=== PATIENT | female | born 1965 | race Caucasian/White ===

== ENCOUNTER 2025-01-30 13:38 | Outpatient (OUT) | payer MEDICARE, MEDICAID, SELFPAY | END 2025-01-30 13:39 | disposition home or self-care (01) | LOC: PST 13:38 | PROVIDERS: Visit Provider Urology | DX: Z01.818 Encounter for other preprocedural examination (principal); Z85.51 Personal history of malignant neoplasm of bladder ==

== ENCOUNTER 2025-02-02 08:07 | Day surgery (SDC) | payer MEDICARE, MEDICAID, SELFPAY ==
[2025-02-02] MEDS: LIDOCAINE 2% JELLY 10 ML UR (08:41)
--- NOTE | 2025-02-02 08:55 | PM.URSON ---
Urology Surgery Operative Note Operative Note Procedure Date: 02/02/25 Time Out Performed: yes Pre-op Diagnosis: History of recurrent TCC of the bladder Post-op Diagnosis: same as pre-op Procedures performed: 1. Cystoscopy. 2. Bladder wash for cytology. Anesthesia: local Primary Surgeon: Jono Blake Complications: None Estimated blood loss (mL): 0 Findings: No evidence of bladder tumors. Mild chronic inflammatory changes. Specimens: Bladder wash for cytology. Drains: None Indications for Procedures: This lady has recurrent superficial TCC of the bladder. She is in a facility due to her inability to care for herself. It has been nearly 1 year since her last cystoscopy. She now presents for cystoscopy and bladder wash for cytology. She has signed an informed consent after risks were explained. Detailed description of Procedure: The patient was kept on the gurcoleman bed and brought into the endoscopy suite. She was in the supine position. Timeout was done by all parties in the room. She was then placed in the frog-leg position. Her genitalia were sterilely prepped and draped in the usual fashion. 2% lidocaine gel was passed per urethra. I then passed a flexible cystoscope per urethra and into the bladder. The urethra was unremarkable. Panendoscopy in the bladder revealed no evidence of any tumors or stones. There was some mild chronic inflammatory changes on the base of the bladder. There was some inflammatory debris on the base of the bladder. On retroflex no new findings were noted. A vigorous wash was done and sent for cytology. The scope was then removed. She was then discharged back to her facility.
--- NOTE | 2025-02-02 09:15 | PC.NURSE ---
attempted 3 times to update facility on post op procedure no answer. Patient's facility hook up driver came to brain picker patient in the lift van.
== END 2025-02-02 09:11 | disposition home or self-care (01) ==
PROVIDERS: Visit Provider Urology
PROC: (CPT 51700; principal; 2025-02-02 08:30)
DX: Z85.51 Personal history of malignant neoplasm of bladder (principal); D64.9 Anemia, unspecified; I25.10 Atherosclerotic heart disease of native coronary artery without angina pectoris; K21.9 Gastro-esophageal reflux disease without esophagitis; J44.9 Chronic obstructive pulmonary disease, unspecified; E11.9 Type 2 diabetes mellitus without complications; I10 Essential (primary) hypertension; Z86.718 Personal history of other venous thrombosis and embolism; Z90.49 Acquired absence of other specified parts of digestive tract; Z89.429 Acquired absence of other toe(s), unspecified side; Z79.4 Long term (current) use of insulin; Z79.84 Long term (current) use of oral hypoglycemic drugs; F17.200 Nicotine dependence, unspecified, uncomplicated
CPT/HCPCS: 51700; 52000; 99999

== ENCOUNTER 2025-08-19 12:05 | Outpatient (OUT) | payer MEDICARE, SELFPAY ==
--- OUTSIDE RECORDS SUMMARY | 2025-08-19 12:08 | XMS_ITS | Clinical Summary ---
Author Organization [facility] Address [address] [facility] [place] [address] Care Team Providers Care Tie Man Name Role Phone Unavailable Primary Care Provider Unavailabl e Source Comments The following information is NOT included in Care Everywhere downloads:Psychiatric notes, ECG results, Cardiac Rehab notes, Pulmonary Function notes, data from SmartForms (includes but not limited toPregnancy data,audiograms, eye exams, pre-surgical evaluation notes, well-child exam data).[facility] Allergies Active AllergyReactionsCriticalityNoted DuenCdgnpgbaOnryppqhbha24/20/2024 Medications MedicationSigDispense QuantityRefillsLast FilledStart DateEnd DateStatus levothyroxine (SYNTHROID) 100 MCG tablet Take 2 Tablets by mouth daily.04/30/2024ctive sodium chloride 1 GM tablet Take 1 Tablet by mouth 3 times a day.04/30/2024ctive polyethylene glycol (MIRALAX) packet Dissolve 1 Packet (17 g total) in 8 ounces of liquid and drink daily.05/01/2024 Active insulin lispro (HumaLOG) 100 UNIT/ML injection Inject 2-9 Units under the skin 3 times daily (before meals).04/30/2024ctive acetaminophen (TYLENOL) 500 MG tablet Take 1 Tablet by mouth every 6 (six) hours.04/30/2024ctive docusate sodium (COLACE) 100 MG capsule Take 1 Capsule by mouth 2 times daily. 10 Capsule 07/14/2024 11:41 AM EDT1ctive lidocaine (LIDODERM) 4 % PTCH patch Place 1 Patch on the skin every 24 hours. 10 Patch 07/14/2024 11:41 AM EDT1ctive Active Problems ProblemNoted DateDiagnosed SeqwJyeidrnt19/20/9788Qqamqhyxnril89/03/2024MRSA cjjjjyyjjs02/28/2024UTI due to Klebsiella genjdwx3804/20/2024neumonia due to methicillin resistant Staphylococcus aureus (MRSA), unspecified laterality, unspecified part of lung04/20/2024oronary artery disease involving tyonek heart, unspecified vessel or lesion type, unspecified whether angina present 04/20/2024Type 2 diabetes mellitus without complication, without long-term current use of zcmwgfr1404/20/2024cute respiratory failure with hypoxia and ujtggxfismw94/19/2024Osteomyelitis of lumbar ulcsatgf57/17/2024 Immunizations ImmunizationAdministration DatesNext DuePneumococcal conjugate 13 valent (PCV13) (AWR=622)06/30/2021neumococcal conjugate 20 valent (PCV20), polysaccharide YME474 conjugate, adjuvant, PF (TDS=993)03/29/2023Zoster Recombinant (RZV,Shingles) (XJX=298)03/29/2023 Social History Tobacco UseTypesPacks/DayYears UsedDateSmoking Tobacco: Never Assessed Humiliation, Afraid, Rape, and Kick questionnaireAnswerDate RecordedWithin the last year, have you been afraid of your partner or ex-partner?No07/14/2024Within the last year, have you been humiliated or emotionally abused in other ways by your partner or ex-partner?No07/14/2024Within the last year, have you been kicked, hit, slapped, or otherwise physically hurt by your partner or ex-partner?No07/14/2024Within the last year, have you been raped or forced to have any kind of sexual activity by your partner or ex-partner?No07/14/2024 Hunger Vital SignAnswerDate RecordedWithin the past 12 months, you worried that your food would run out before you got the money to buymore.Never true07/14/2024 Within the past 12 months, the food you bought just didn't last and you didn't have money to get more.Never true07/14/2024RAPARE - TransportationAnswerDate RecordedIn the past 12 months, has lack of transportation kept you from medical appointments or from getting medications?Yes07/14/2024In the past 12 months, has lack of transportation kept you from meetings, work, or from getting things needed for daily living?Yes07/14/2024Housing Stability Vital SignAnswerDate RecordedIn the last 12 months, was there a time when you were not able to pay the mortgage or rent on time?No07/14/2024Number of Times Moved in the Last Year Not on file07/14/2024t any time in the past 12 months, were you homeless or living in a skilled nursing (including now)?No07/14/2024CommentsUnknownSex and Gender InformationValueDate RecordedSex Assigned at BirthNot on fileLegal Sex Mxfofm1611/23/2020 12:07 PM ESTGender IdentityNot on fileSexual OrientationNot on file Last Filed Vital Signs Vital SignReadingTime TakenCommentsBlood Iabnulcs043/7007/14/2024 10:00 AM EDT Xouyw634107/14/2024 10:00 AM TENJzdcyolasva05 ??C (98.6 ??F)07/14/2024 10:00 AM EDTRespiratory Ulhv5370 10:00 AM EDTOxygen Ydlsizqhpt19%07/14/2024 10:00 AM EDTInhaled Oxygen Concentration--Hbiuzu147.7 kg (266 lb)07/13/2024 7:13 PM HLPBgwkgf202.6 cm (5' 4 )04/19/2024 9:00 PM EDTBody Mass Index45.66004/19/2024 9:00 PM EDT Plan of Treatment Health MaintenanceDue DateLast DoneCommentsFoot Exam1963Eye Exam1963 Urine Protein (microalbumin)1963Hepatitis C Puczdwty40/09/1982Tdap Booster 1981Hepatitis A (HAV) Vaccine (optional start 19+ years)1982Pap Smear1984Cologuard (Stool DNA)2008FIT2008RSV vaccine (adult) (1 - Risk 50-74 years 1-dose series)2013nnual Wellness Visit (G0438) 12/23/20212569Yshspyvuoad52//hingles (RZV) Vaccine (2 of 2) /02/2023Hepatitis B (HBV) Vaccine (optional start 60+ years) 2023Hemoglobin A1C//850672/, 07/05/2022Lipid Rzvhzun4610/18/2024 10/18/2023OVID-19 Vaccine (3 - season)/06/2021, 07/12/2021 Influenza Vaccine (#1)2025asic Metabolic Panel/, 05/12/2024, 05/01/2024, Additional history existsCRC Tzuqzgrwp07/30/2029 Iaeylxoatqx31Pneumococcal Vaccine(s) (50+ yrs)Completed 03/29/2023, 06/30/2021HIV NrzsZopecxcny14/20/2024 Medical Devices ImplantedTypeAreaManufacturerDevice IdentifierShelf Expiration DateModel / Serial / LotCap Lck Creo Nxt Lck Ns Lf Ea1 1200.0000 - [id number] Implanted:Qty: 12 on 04/17/2024 by Jhon Fried MD at INPATIENT DEPARTMENTSSpinal ImplantsN/A: Spine Multi CjlauJufpqi6749.0000 / / Scr Bn 6.5mm 45mm Creo Nxt Ea1 7200.1645 - [id number] Implanted:Qty: 10 on 04/17/2024 by Jhon Fried MD at INPATIENT DEPARTMENTSSpinal ImplantsN/A: Spine Multi QhwruQmsisa0170.1645 / / Plate 20mm 0deg Lower Endplat Ea1 151.451 - [id number] Implanted:Qty: 1 on 04/17/2024 by Jhon Fried MD at INPATIENT DEPARTMENTSSpinal ImplantsN/A: Spine Multi AbxsvTqkgip777.451 / / Pty Grft Ossifuse Has Fb Bn 10 Ea1 8263.0010s - [id number] Implanted:Qty: 3 on 04/17/2024 by Jhon Fried MD at INPATIENT DEPARTMENTSN/A: Spine Multi IqjueDfkuvd9942.0010S / / SUPPLYRod Lordotic Ti 5.5 Alloy 200 Ea1 1119.4200 - [id number] Implanted:Qty: 2 on 04/17/2024 by Jhon Fried MD at INPATIENT DEPARTMENTSN/A: Spine Multi QhariYceexd4949.4200 / / Core 20 X 26-34mm Fortify Ea1 151.151 - [id number] Implanted:Qty: 1 on 04/17/2024 by Jhon Fried MD at INPATIENT DEPARTMENTSN/A: Spine Multi TozpsEabkbz222.151 / / 20mm Upper Ea1 151.401 - [id number] Implanted:Qty: 1 on 04/17/2024 by Jhon Fried MD at INPATIENT DEPARTMENTSN/A: Spine Multi KihxnAxfpro713.401 / / Procedures Procedure NamePriorityDate/TimeAssociated DiagnosisCommentsBASIC METABOLIC PANEL Ymehxzj5007/14/2024 1:16 AM EDT HIV1 HIV2 AGAB PEVKMqcwxnh52/20/2024 8:48 AM EDT from Last 3 Months or Most Recently Relevant to Health Maintenance Results * (ABNORMAL) BASIC METABOLIC PANEL (07/14/2024 1:16 AM EDT)ComponentValueRef RangeTest MethodAnalysis TimePerformed AtPathologist PbborqcgmDbfiihq270(H)74 - 109 mg/dL07/14/2024 2:30 AM [facility]EN[facility] YARBGWPGIMHadclc471(L)136 - 145 mmol/L1 2:30 AM EDEN[facility] PATHOLOGY LABORATORYPotassium4.83.5 - 5.0 mmol/L1 2:30 AM EDEN[facility] LABORATORYCarbon Eamoczy0252 - 31 mmol/L1 2:30 AM EDEN[facility] ITQMIEKAEQQrkccfnh04(L)98 - 107 mmol/L1 2:30 AM EDTM PATHOLOGY LABORATORYBlood Urea Gnacdlen033 - 25 mg/dL07/14/2024 2:30 AM [facility] PATH[facility] LABORATORYCreatinine0.51(L)0.60 - 1.20 mg/dL07/14/2024 2:30 AM [facility] PATH[facility] LABORATORYCalcium9.78.6 - 10.3 mg/dL07/14/2024 2:30 AM [facility] PATH[facility] LABORATORYAnion Ojo6915 - 20 07/14/2024 2:30 AM [facility] PATH[facility] LABORATORYEstimated GFR (CKD-EPI)107>=60 mL/min/1.30fdo31 2:30 AM [facility] PATHOLOGY LABORATORYComment: 2020 CKD EPI Equation using Creatinine without Race Comment: ??Estimated glomerular filtration rate (eGFR) is calculated without a race coefficient. Values should be interpreted in the context of the patient's full clinical presentation. Reference: 1. Jose Alfredo C, Christel M, Mik POE, et al.. A Unifying Approach for GFR Estimation: Recommendations of the NKF-ASN Task Force on Reassessing the Inclusion of Race in Diagnosing Kidney Disease. AmericanJournal of Kidney Diseases 202;79(2):268-88.e1. 2. N Engl J Med 2021 Vol. 385 Issue 19 Pages 3482-8936 Specimen (Source)Anatomical Location / LateralityCollection Method / Volume Collection TimeReceived TimeBloodBLOOD SPECIMEN / UnknownVenipuncture / Unknown 07/14/2024 1:16 AM EDT1 2:04 AM EDT Narrative Authorizing ProviderResult TypeResult StatusApril Cristy SPORTSPERSONS-CNP98 GENERAL LAB Final ResultPerforming OrganizationAddressCity/State/ZIP CodePhone Number [facility] [address] [place] [address] * HIV1 HIV2 AGAB SCRN (04/12/2024 8:48 AM EDT)ComponentValueRef RangeTest Method Analysis TimePerformed AtPathologist SignatureHIV Ag-Ab ScreenNon-Reactive Non-Qnyyiedl96/20/2024 11:44 AM [facility] PATHOLOGY LABORATORYComment:No laboratory evidence for HIV Infection. Negative result does not rule out acute HIV infection. Ifacute HIV infection is suspected, recommend ordering an HIV-1 RNA quanitification test.Specimen (Source)Anatomical Location / Laterality Collection Method / VolumeCollection TimeReceived TimeBloodBLOOD SPECIMEN / UnknownVenipuncture / Kwcshli2604/12/2024 8:48 AM EDT04/12/2024 9:11 AM EDT Narrative [facility] - 04/12/2024 11:44 AM EDT HIV Information: ??[place] Rev. code 3701.243(E): This information has been disclosed to you from confidential records protected from disclosure by state law. ??You shall make no further disclosure of this information without the specific, written, and informed release of the individual to whom it pertains, or as otherwise permitted by state law. ??A general authorization for the release of medical or other information is not sufficient for the purpose of the release of HIV test results or diagnoses. Authorizing ProviderResult TypeResult StatusBenthalia MORRIS HIV/HEP/SYPH TESTINGFinal ResultPerforming OrganizationAddressCity/State/ZIP CodePhone Number [facility] [address] [place] [address] from Last 3 Months or Most Recently Relevant to Health Maintenance Insurance Advance Directives * Full Code (Latest Code Status on File) Date ActivatedDate GrygbsuugpoMqjhjuqk57/20/2024 7:12 PM10 6:16 PM QuestionAnswerCommentsDocumentation of decision process for this code status:* Patient and surrogate unable or unavailable to discuss.?? Defaulting to the previously documented code status. * Full Code Date ActivatedDate InactivatedComments04/11/2024 7:12 PM8 6:26 PMQuestion AnswerCommentsDocumentation of decision process for this code status:* Patient and surrogate unable or unavailable to discuss.?? There is no previous documentation of code status.?? Defaulting to Full Code
--- OUTSIDE RECORDS SUMMARY | 2025-08-19 12:08 | XMS_ITS | Clinical Summary ---
Author Organization [facility] Address [address] [place] [address] Phone Care Team Providers Care Power Washer Name Role Phone Unavailable Primary Care Provider Unavailabl e Encounters DateTypeDepartmentCare HkerHqtxwjlprni63/25/2025Orders Only [facility] [address] Virtual [place] [address] Zach Seymour DO from Last 3 Months Social History Tobacco UseTypesPacks/DayYears UsedDateSmoking Tobacco: Never Assessed CommentsUnknownSex and Gender InformationValueDate RecordedSex Assigned at Not on fileLegal CorWtawwc00/25/2022 9:57 PM ESTGender IdentityNot on fileSexual OrientationNot on file Plan of Treatment Not on file Procedures Procedure NamePriorityDate/TimeAssociated DiagnosisCommentsCT ABDOMEN PELVIS WO IV WJIRDNXW82/25/2025 4:00 AM EDT NON-UH HIE C RMPCEUstufqx85/25/2025 3:59 AM EDT NON-UH HIE EQMCHkvjrcy03/25/2025 3:59 AM EDT NON-UH HIE LIPASE FINEQQbhdwzc54/25/2025 3:59 AM EDT NON-UH HIE HEP FUNC RZZGCRhthlej64/25/2025 3:59 AM EDT NON-UH HIE UZTOirbhjx41/25/2025 3:59 AM EDT NON-UH HIE UA WITH CULT RXZDAtrchac41/25/2025 3:59 AM EDT NON-[facility] HIE CBC W/ AUTO PPYVWwoddxu98/25/2025 3:59 AM EDT NON-UH HIE UA WITH CULT RFLX QMPsmvndb44/25/2025 3:59 AM EDT from Last 3 Months Results * CT abdomen pelvis wo IV contrast (06/18/2025 4:00 AM EDT)Anatomical Region LateralityModalityAbdominal, BodyComputed TomographySpecimen (Source) Anatomical Location / LateralityCollection Method / VolumeCollection Time Received Time06/18/2025 4:00 AM EDT Narrative 06/18/2025 10:46 AM EDT Exam Date/Time: 06/18/2025 04:26 EDT Reason for Exam: ABDOMINAL PAIN, ACUTE, NONLOCALIZED;Other (please specify) Report IMPRESSION: ??MILD RADIODENSE DEBRIS WITHIN THE URINARY BLADDER AND MILD WALL THICKENING, POSSIBLY CYSTITIS AND/OR UNDERDISTENTION. NO URINARY TRACT OBSTRUCTION OR OTHER SIGNIFICANT CHANGES FROM 09/26/2024 IDENTIFIED. EXAM: CT Abdomen/Pelvis w/o Contrast DATE: 06/18/2025 4:00 AM CLINICAL HISTORY: ??ABDOMINAL PAIN, ACUTE, NONLOCALIZED. Technologist Comments: c/o Rt flank pain since 3am yesterday. COMPARISON: ??CTA abdominal aorta/runoff 09/26/2024. TECHNIQUE: Spiral unenhanced images were obtained of the abdomen and pelvis without contrast. All CT scans at this facility use dose modulation, iterative reconstruction, and/or weight based dosing when appropriate to reduce radiation dose to as low as reasonably achievable. Unless otherwise stated, incidental findings identified in this report do not require routine follow-up imaging. FINDINGS: ?? Liver: Morphologic changes of moderate hepatic cirrhosis again noted. No suspicious mass or lesion. Biliary: The gallbladder has been removed. No abnormal biliary ductal dilatation. Pancreas: No obvious mass, organized fluid collection, or abnormal pancreatic ductal dilatation. Spleen: Mildly enlarged. Otherwise, unremarkable. Adrenals: Unremarkable. Kidneys: Approximately 2 mm left upper pole calculus and right renal cysts. No hydronephrosis, other significant urinary tract calculi, surrounding inflammatory changes, or parenchymal atrophy. GI tract: No abnormal dilation, wall thickening, or suspicious mass. Mild sigmoid diverticulosis. Normal appendix. Lymph nodes: No pathologically enlarged lymph nodes. Vasculature: No aneurysm. Moderate calcified atherosclerotic plaquing. Mesentery/peritoneum/retroperitoneum: No free fluid, organized fluid collection, inflammatory changes, or suspicious mass. Pelvis: Mild dependent radiodense debris and nonspecific wall thickening of a mildly distended bladder. The uterus and adnexa appear within normal limits. Musculoskeletal: No acute osseous findings identified. Degenerative and postoperative changes again noted. Report Lower thorax: The visualized lung bases are clear. Ordering Provider: Zach Seymour FINAL REPORT Dictated: ??06/18/2025 10:43 am ?Anthony Rothman MD Signed (Electronic Signature): ??06/18/2025 10:43 am Signed by: ??Anthony Rothman MD Transcribed by: ??DP ? Technologist: ??SKS Authorizing ProviderResult TypeResult StatusZach Seymour DOIMG CT PROCEDURES Final Result * NON-[facility] HIE UA WITH CULT RFLX SP (06/18/2025 3:59 AM EDT)ComponentValueRef RangeTest MethodAnalysis TimePerformed AtPathologist SignatureNON- HIE UA Spec DescClean [facility] Hospitalpecimen (Source)Anatomical Location / LateralityCollection Method / VolumeCollection TimeReceived Time [facility] Lab- Urine06/18/2025 3:59 AM EDT Narrative Authorizing ProviderResult TypeResult StatusZach Seymour DOLAB BLOOD ORDERABLES Final ResultPerforming OrganizationAddressCity/State/ZIP CodePhone Number [facility] [address] [phone], * (ABNORMAL) NON-[facility] HIE UA WITH CULT RFLX (06/18/2025 3:59 AM EDT)ComponentValue Ref RangeTest MethodAnalysis TimePerformed AtPathologist SignatureNON-UH HIE UA ColorYellowYellowWILSON MEMORIAL HOSPITALComment:Microscopic readings are only performed on those samples that meet specific criteria set forth by [facility] Laboratory.NON-[facility] HIE UA ClarityTurbid(A)Clear [facility] UA Spec Grav1.0321.005 - 1.030FISHR [facility] UA pH8.55.0 - 9.0[facility] UA ProteinTrace(A)Negative mg/dLREGENCY HOSPITAL CLEVEL[facility]ST UA Glucose4+(A)Negative mg/dLREGENCY HOSPITAL [facility]LEVEL[facility] UA KetonesNegativeNegative mg/dLREGENCY HOSPITAL [facility] UA Bili NegativeNegative mg/dLREGENCY HOSPITAL [facility]LEVEL[facility] UA BloodNegative Negative mg/dLREGENCY HOSPITAL [facility]LEVEL[facility] UA Nitrite2+(A)Negative mg/dLREGENCY HOSPITAL CLEVELAND WEST UA UrobilinogenNegativeNegative mg/dLREGENCY HOSPITAL CLEVELAND [facility] UA Leuk Yud539 Tanya/uL(A)Negative CD:[id number] HOSPITAL CLEVELAND WEST UA AWR61-41(A)0 - 5 CD:[id number] HOSPITAL CLEVELAND [facility]ST UA RBC0-30 - 3 CD:[id number] HOSPITAL CLEVELAND WEST UA Squam Epithelial3-4 CD:[id number] HOSPITAL CLEVELAND WEST UA Bacteria3+(A)Trace /HPF [facility] UA MUCOUSTraceNegative CD:[id number] [facility] UA TRIP BARB CRYSPresent(A)CD:[id number] [facility] UA CA OX CRYSTALPresent(A)CD:[id number] [facility] UA Amorph CrysPresent(A)CD:[id number] [facility]OSPITALpecimen (Source)Anatomical Location / Laterality Collection Method / VolumeCollection TimeReceived TimeBROOKHAVEN [facility] Lab- Urine 06/18/2025 3:59 AM EDT Narrative Authorizing ProviderResult TypeResult StatusZach RAMIREZ BLOOD ORDERABLES Final ResultPerforming OrganizationAddressCity/State/ZIP CodePhone Number [facility] [address] [place] [address], [place] * (ABNORMAL) NON- HIE CBC w/ Auto Diff (06/18/2025 3:59 AM EDT)ComponentValue Ref RangeTest MethodAnalysis TimePerformed AtPathologist [facility] WBC7.84.0 - 11.0 E9/LFOHIOHEALTH DUBLIN METHODIST HOSPITALE RBC5.44.3 - 5.9 E12/LFOHIOHEALTH DUBLIN METHODIST HOSPITALE HGB15.712.0 - 16.0 gm/dLSELECT MEDICAL SPECIALTY [facility] HCT46.4(H)34.0 - 46.0 %[facility] RDW15.8(H)10.9 - 14.2 %[facility] MCH29.327.0 - 34.0 pgFGUERNSEY MEMORIAL HOSPITAL HIE MCHC33.831.4 - 36.0 gm/dLSELECT MEDICAL SPECIALTY [facility] MCV86.680.0 - 100.0 fLSELECT MEDICAL SPECIALTY HOSPITAL [facility] MPV6.86.4 - 10.8 fLSELECT MEDICAL SPECIALTY HOSPITAL - [facility] UTRJHMTU479.0150.0 - 500.0 E9/[facility]ITALE NEUTRO AUTO77.2(H)36.0 - 75.0 %[facility] HIE LYMPH AUTO15.114.0 - 50.0 %[facility] MONO AUTO5.44.0 - 14.0 %[facility] EOS AUTO0.80.0 - 8.0 %[facility] BASOPHIL AUTO1.50.0 - 2.0 %[facility] NEUTRO ABSOLUTE6.02.0 - 7.5 E9/[facility] HIE LYMPH ABSOLUTE1.21.0 - 4.0 E9/LFGUERNSEY MEMORIAL HOSPITAL HIE MONO ABSOLUTE0.40.2 - 1.0 E9/LFGUERNSEY MEMORIAL HOSPITAL HIE EOS ABSOLUTE0.10.0 - 0.5 E9/LFOHIOHEALTH DUBLIN METHODIST HOSPITALE BASOPHIL ABSOLUTE0.10.0 - 0.2 E9/LFMARIETTA MEMORIAL HOSPITALpecimen (Source) Anatomical Location / LateralityCollection Method / VolumeCollection Time Received TimeBR[facility]HAV[facility] Lab- Blood06/18/2025 3:59 AM EDT Narrative Authorizing ProviderResult TypeResult StatusZach CLAYAB BLOOD ORDERABLES Final ResultPerforming OrganizationAddressCity/State/ZIP CodePhone Number [facility] [address] [place] [address], [place] * (ABNORMAL) NON-[facility] HIE BMP (06/18/2025 3:59 AM EDT)ComponentValueRef RangeTest MethodAnalysis TimePerformed AtPathologist SignatureNON- HIE GLUCOSE CXB936 55 - 199 mg/dLUNIVERSITY HOSPITALS [facility] HIE BUN32(H)5 - 21 mg/dLSUMMA [facility]- HIE CREATININE0.50.5 - 1.3 mg/dLSELECT MEDICAL [facility] BUN/CREAT RATIO64(H)10 - 20 No UnitsSUM[facility]- HIE CALCIUM LVL10.78.9 - 11.1 mg/dLSUMMA HEALTH [facility]SWOR[facility] - [facility]- HIE SODIUM YZS234(L)135 - 145 mmol/LFKETTERING HEALTH PREBLE NON- HIE POTASSIUM LVL4.23.5 - 5.3 mmol/LFGUERNSEY MEMORIAL HOSPITAL HIE ZHTGYZGI952475 - 111 mmol/LFSALEM CITY HOSPITAL- HIE SO15113 - 31 mmol/LFGUERNSEY MEMORIAL HOSPITAL HIE AGAP96 - 16 mEq/LFMARIETTA MEMORIAL HOSPITALpecour community hospitaln (Source)Anatomical Location / LateralityCollection Method / VolumeCollection TimeReceived [facility] Lab- Blood06/18/2025 3:59 AM EDT Narrative Authorizing ProviderResult TypeResult StatusZach CLAYAB BLOOD ORDERABLES Final ResultPerforming OrganizationAddressCity/State/ZIP CodePhone Number [facility] [address] [place] [address], [place] * NON-[facility] HIE Lipase Level (06/18/2025 3:59 AM EDT)ComponentValueRef RangeTest MethodAnalysis TimePerformed AtPathologist SignatureNON- HIE LIPASE GBX1859 - 58 unit/LFMARIETTA MEMORIAL HOSPITALpecimen (Source)Anatomical Location / LateralityCollection Method / VolumeCollection TimeReceived TimeBROOKHAVEN [facility]OS[facility] [place] Lab- Blood06/18/2025 3:59 AM EDT Narrative Authorizing ProviderResult TypeResult StatusZach CLAYAB BLOOD ORDERABLES Final ResultPerforming OrganizationAddressCity/State/ZIP CodePhone Number [facility] [address] [place] [address], [place] * (ABNORMAL) NON-[facility] HIE Hep Func Panel (06/18/2025 3:59 AM EDT)ComponentValueRef RangeTest MethodAnalysis TimePerformed AtPathologist SignatureREUNION REHABILITATION [facility]- HIE ALT12 6 - 46 Int._Unit/LFGUERNSEY MEMORIAL HOSPITAL HIE GTH474 - 43 Int._Unit/LFGUERNSEY MEMORIAL HOSPITAL HIE ALBUMIN LVL3.83.3 - 5.0 gm/dL [facility] HIE GLOBULIN4.6(H)1.4 - 4.0 gm/dLUNIVERSITY HOSPITALS [facility] HIE A/G RATIO0.8(L)1.1 - 2.2FGUERNSEY MEMORIAL HOSPITAL HIE ALK FNJO446(H)21 - 98 Int._Unit/LFKETTERING HEALTH PREBLE NON- HIE BILI DIRECT0.10.0 - 0.4 mg/dLUNIVERSITY H[facility]ITALS [facility] HIE BILI INDIRECT0.30.1 - 0.9 mg/dLUNIVERSITY HOSPITALS [facility] HIE BILI TOTAL0.40.0 - 1.1 mg/dLUNIVERSITY [facility]OS[facility]ITALS [facility] HIE TOTAL PROTEIN8.4 (H)6.0 - 7.8 gm/dLFISHGRACE MEDICAL CENTERpecimen (Source)Anatomical Location / LateralityCollection Method / VolumeCollection TimeReceived Time [facility] Lab- Blood06/18/2025 3:59 AM EDT Narrative Authorizing ProviderResult TypeResult StatusZach Seymour DOLAB BLOOD ORDERABLES Final ResultPerforming OrganizationAddressCity/State/ZIP CodePhone Number [facility] [address] [place] [address], * NON-[facility] HIE eGFR (06/18/2025 3:59 AM EDT)ComponentValueRef RangeTest Method Analysis TimePerformed AtPathologist SignatureNON-UH HIE ATCU739>=59 mL/min/1.73 z3EVVJUWTUSCARAWAS HOSPITALpecimen (Source)Anatomical Location / LateralityCollection Method / VolumeCollection TimeReceived TimeBROOKHAVEN [facility] Lab- Blood06/18/2025 3:59 AM EDT Narrative Authorizing ProviderResult TypeResult StatusZach Seymour DOL BLOOD ORDERABLES Final ResultPerforming OrganizationAddressCity/State/ZIP CodePhone Number [facility] [address] [facility] [place] [address], * NON-[facility] HIE C Urine (06/18/2025 3:59 AM EDT)Specimen (Source)Anatomical Location / LateralityCollection Method / VolumeCollection TimeReceived Time [facility] U XfvexNcyyu22/25/2025 3:59 AM EDT Narrative [facility] - 06/20/2025 9:08 AM EDT Microbiology PROCEDURE: ?Urine Culture ??[R1] ?ACCESSION: ?[id number] SOURCE: ? U CleanCatch ? BODY SITE: COLLECTED DATE/TIME: ?06/18/2025 03:59 EDT ?RECEIVED DATE/TIME: ? 06/18/2025 05:44 EDT START DATE/TIME: ?06/18/2025 05:44 EDT ?FREE TEXT SOURCE: Zach Seymour DO ?Zach Seymour DO AMENDED REPORTS Amended Report ??[] ?Verified Date/Time: 06/20/2025 09:17 EDT >100,000 cfu/ml Proteus mirabilis Suspected ESBL. SUSCEPTIBILITY RESULTS LEGEND: S=Susceptible, N/R=Not Reported, Blank=Data not available, or drug not advisable or tested, I=Intermediate, ESBL=Extended spectrum beta-lactamase, R=Resistant, TFG=Thymidine-dependent strain, CORRINE=Beta-lactamase positive, ERINN=mcg/m;(mg/L), S*=Predicted susceptible interp, R*=Predicted resistant interp ?Promir Antibiotic ?ERINN Dilutn ?ERINN Interp Ampicillin >16 R Ampicillin/ <=8/4 S Sulbactam Cefazolin ? 16 ?I Cefepime <=2 S Ceftazidime/ <=8 S Avibactam Ceftriaxone ? 2 ? I Cefuroxime >16 R Ciprofloxacin >2 R Ertapenem <=0.5 S Gentamicin <=2 S Levofloxacin >4 R Meropenem <=1 S Nitrofurantoin >64 R Piperacillin/ <=8 S Tazobactam Tetracycline >8 R Tobramycin ?4 ? S Trimethoprim/ <=2/38 S Sulfa Performing Locations R1: ?? This test was performed at: ?[facility], [address] [place] [address], [phone] [phone], [place], Authorizing ProviderResult TypeResult StatusZach RAMIREZ BLOOD ORDERABLES Edited Result - FinalPerforming OrganizationAddressCity/State/ZIP CodePhone Number [address] [address], [place] from Last 3 Months
--- OUTSIDE RECORDS SUMMARY | 2025-08-19 12:08 | XMS_ITS | Clinical Summary ---
Author Organization TRA tem Address [id number] [place] [address] Care Team Providers Care Structural Shop Helper Name Role Phone Unavailable Primary Care Provider Unavailabl e Social History Tobacco UseTypesPacks/DayYears UsedDateSmoking Tobacco: Never AssessedChildcare AnswerDate SvnshbjcIaxmoakkuQjhabfi12/10/2019EmploymentAnswerDate Recorded BmjsiestunAycmaly47/10/2019Purpose - LifeAnswerDate RecordedPurpose and direction in gvgwFxmqoya04/11/2021CommentsUnknownSex and Gender InformationValueDate RecordedSex Assigned at BirthNot on fileLegal SexFemale 07/03/2019 11:15 AM EDTGender IdentityNot on fileSexual OrientationNot on file Plan of Treatment Health MaintenanceDue DateLast DoneCommentsDepression Xkldlmpid19/09/1976Tobacco Jntfiqvxd30/09/1976Adult BMI Zldrhdcqa02/09/1982DTaP,Tdap and Td Vaccines (1 - Tdap)1982Pap Smear1984Zoster (Shingles) Vaccine (2 of 2)05/24/2023 3COVID-19 Vaccine (3 - 2024- season)511/06/2021, 07/12/2021 Influenza Mimhovj2205/25/2025RSV ( or age 60+ yrs) (1 - 1-dose 75+ series) 2038 [employer] Not on file Insurance
--- OUTSIDE RECORDS SUMMARY | 2025-08-19 12:08 | XMS_ITS | Clinical Summary ---
Author Organization [facility] Address [address] [place] [address] Care Team Providers Care Make Up Arranger Name Role Phone Cielo Bermudez MD Unavailable [phone] Nia Crow MD Primary Care Provider [phone] Allergies Active AllergyReactionsCriticalityNoted DateCommentsPenicillinsShortness of Fuevab7810/11/2022 Medications MedicationSigDispense QuantityRefillsLast FilledStart DateEnd DateStatus ibuprofen (MOTRIN) 800 mg tablet Take 800 mg by mouth every 8 hours as needed.Active montelukast (SINGULAIR) 10 mg tablet Take 10 mg by mouth daily at bedtime.Active levothyroxine 200 mcg cap Take 200 mcg by mouth daily before breakfast.Active budesonide-formoterol (SYMBICORT) 160-4.5 mcg/actuation inhaler Inhale 2 Puffs as instructed twice daily.Active SITagliptin phosphate (JANUVIA) 100 mg tablet Take 100 mg by mouth once daily.Active albuterol (PROVENTIL) 2.5 mg /3 mL (0.083 %) nebulizer solution Use 2.5 mg via nebulizer.Active aspirin 81 mg cap Take by mouth.Active calcium carbonate/vitamin D3 (CALCIUM + D ORAL) Take by mouth.Active hydroCHLOROthiazide (HYDRODIURIL, ESIDRIX) 25 mg tablet Take 25 mg by mouth once daily.Active losartan (COZAAR) 50 mg tablet Take 50 mg by mouth once daily.Active Omeprazole 20 mg TbEC Take by mouth.Active simvastatin (ZOCOR) 20 mg tablet Take 20 mg by mouth daily at bedtime.Active ferrous sulfate 325 mg (65 mg iron) tablet Take 325 mg by mouth.Active SITagliptin phosphate (JANUVIA) 50 mg tablet Take 50 mg by mouth once daily.Active hydroCHLOROthiazide (HYDRODIURIL, ESIDRIX) 25 mg tablet Take 25 mg by mouth once daily.Active lisinopril (ZESTRIL, PRINIVIL) 10 mg tablet Take 10 mg by mouth once daily.Active fluticasone-salmeterol (ADVAIR DISKUS) 250-50 mcg/dose inhaler Inhale 1 Puff as instructed twice daily.Active amLODIPine (NORVASC) 5 mg tablet Take by mouth once daily.Active naproxen (NAPROSYN) 500 mg tablet Take 500 mg by mouth twice daily with meals.Active insulin glargine,hum.rec.anlog (LANTUS SUBCUTANEOUS) Inject subcutaneously.Active loperamide HCl (LOPERAMIDE ORAL) Take by mouth.Active HYDROcodone-acetaminophen (NORCO) 5-325 mg per tablet Indications:PainTake 1 tablet by mouth every 8 hours as needed for pain for up to 1 day. 3 tablet Expired Encounters DateTypeDepartmentCare SpwdCeyguktieup30/23/2025[facility] [address] [place] [address], [facility]. SIM[facility]HABILITATION HOSPITALLianne Frank APRN.PUFF IRON OPERATOR 08/03/2025[place] [address] Shahzad Anderson APRN.COMPUTER SUPPORT ANALYST 07/17/2025[place] [address] Shahzad Anderson APRN.COMPUTER SUPPORT ANALYST 07/09/2025[facility] [address] [place] [address] Liang Raymundo INTEGRATED SPECIALIST.PUFF IRON OPERATOR Urine culture positive (Primary Dx)06/29/2025Progress Note Sonia Waters Oceanography Professor [address] [place] [address] Yulisa Espitia MD 06/27/2025[facility] [address] [place] [address] Lianne Woo APRN.CNP 06/24/2025[place] [address] Shahzad Anderson APRN.COMPUTER SUPPORT ANALYST 06/18/2025[place] [address] Shahzad Anderson APRN.COMPUTER SUPPORT ANALYST 06/17/2025[facility] [address] [place] [address] [place] [address] Nicolasa Pyle, INTEGRATED SPECIALIST.PUFF IRON OPERATOR Lumbar back pain (Primary Dx); Constipation, unspecified constipation type; Bukgmelr64/10/2025[place] [address] Shahzad Anderson, INTEGRATED SPECIALIST.COMPUTER SUPPORT ANALYST from Last 3 Months Family History Medical HistoryRelationCommentsDiabetesFatherColon CancerMotherDiabetesMother RelationStatusCommentsFatherDeceasedMotherDeceased Social History Tobacco UseTypesPacks/DayYears UsedDateSmoking Tobacco: Every DayCigarettes Tobacco Cessation:Ready to Q uit: Not Asked; Counseling Given: Not Answered Area Deprivation IndexAnswerDate RecordedNational Score (1-100), lower number is lower kfaf465101/23/2023State Score (1-10), lower number is lower riskNot on file 3Data from: https://www.neighborhoodatlas.medicine.[facility].edu/. Last address used for gqvwdxrgnol[address]3CommentsUnknown Sex and Gender InformationValueDate RecordedSex Assigned at BirthNot on file Legal PqtJcoubk93/02/2012 9:36 AM ESTGender IdentityNot on fileSexual OrientationNot on file Last Filed Vital Signs Vital SignReadingTime TakenCommentsBlood Nvcqqjzs022/6807/09/2025 12:05 AM EDT Oojkl706607/09/2025 12:05 AM ZFNCmqbjfcpths13.4 ??C (97.6 ??F)07/09/2025 12:05 AM EDTRespiratory Lzjr1155 12:05 AM EDTOxygen Aopzpvrjkq64%07/09/2025 12:05 AM EDTRAInhaled Oxygen Concentration--Weight--Height--Body Mass Index-- Plan of Treatment Health MaintenanceDue DateLast DoneCommentsAnxiety Glzbckbmg40/09/1982Depression Gbxpvznac18/09/1982HIV Zfjjtxrfj05/09/1982Hepatitis C Efrwlsapo00/09/1982 DTaP,Tdap,Td Vaccine (1 - Tdap)1982Cervical Cancer Kikednigg06/09/1985 Mammogram Zsujuhhkf43/09/2004CT Xbkutwvintjs97/09/2009Cologuard (FIT-DNA) 10/02/20081939Xfjxvlhgsfm03/09/2009Colorectal Cancer Upcbhlxsi00/09/2009Diabetes Rrwgbnrti31/09/2009Fecal Occult Blood2008Lipid Vdgkrflyq46/09/2009 Asfhwwknmjzie27/09/2009Shingrix Vaccine (1 of 2)2013Pneumococcal Vaccine: 50+ (2 of 2 - PPSV23, PCV20, or PCV21)/SV Vaccine (1 - Risk 60-74 years 1-dose series)2023Medicare Advantage Annual Wellness Visit 09/24/2024ovid-19 Vaccine (2024- season), 07/12/2021 Influenza Vaccine (#1)2025 Insurance Care Teams Team MemberRelationshipSpecialtyStart DateEnd Date Nia Crow MD [address] [address] [facility]/11/22 Cielo Bermudez MD [address] [place] [address] ReferringDermatolog10/11/22
--- OUTSIDE RECORDS SUMMARY | 2025-08-19 12:08 | XMS_ITS | Clinical Summary ---
Author Organization [facility] Address [address] [place] [address] Care Team Providers Care Second Butler Name Role Phone Unallocated, Noms Provider Primary Care Provi clifton Allergies Active AllergyReactionsCriticalityNoted DateCommentsPenicillinsAnaphylaxis, Unknown,Shortness of slebvzIqdy13/29/2014 And rash Medications MedicationSigDispense QuantityRefillsLast FilledStart DateEnd DateStatus hydroCHLOROthiazide (HYDRODiuril) 25 MG tablet Indications:Primary hypertensionTake 1 tablet (25 mg) by mouth in the morning. 90 tablet ctive simvastatin (Zocor) 20 MG tablet Indications:Hyperlipemia, mixedTake 1 tablet (20 mg) by mouth at bedtime. 90 tablet ctive citalopram (CeleXA) 40 MG tablet Indications:Depression, unspecified depression typeTake 1 tablet (40 mg) by mouth in the morning. 30 tablet ctive Active Problems ProblemNoted DateDiagnosed DateHyperlipemia, mixed03/01/2023Osteomyelitis of fifth toe of right foot02/13/2023Type 2 diabetes mellitus with diabetic neuropathy, without long-term current use of wycfvyv6102/13/2023ain in left toe(s)02/13/20235075Gyactemxehtop56/23/2023ain in right toe(s)02/13/2023rimary krziurouhovd16/14/2023 Encounters DateTypeDepartmentCare VdleTmndfxtonau68/20/2025Telephone [facility] [address] [facility] [place] [address] Anahi Menchaca MA from Last 3 Months Family History Medical HistoryRelationNameCommentsDiabetesFatherColon cancerMotherDiabetes MotherHypertensionOtherRelationNameStatusCommentsFatherDeceasedMotherDeceased Other Social History Tobacco UseTypesPacks/DayYears UsedDateSmoking Tobacco: FormerCigarettesQuit: 07/22/2022 Tobacco Cessation:Counseling Given: Yes Alcohol UseStandard Drinks/WeekCommentsNever0 (1 standard drink = 0.6 oz pure alcohol)Caffeine intake: 2-3 cups per dayCommentsUnknownSex and Gender InformationValueDate RecordedSex Assigned at BirthNot on fileLegal SexFemale 12/06/2022 7:22 PM EDTGender IdentityNot on fileSexual OrientationNot on file Last Filed Vital Signs Vital SignReadingTime TakenCommentsBlood Efuwnvfw733/7909 2:15 PM EDT Ttbbb362406/19/2024 2:15 PM EDTTemperature--Respiratory Rate--Oxygen Saturation-- Inhaled Oxygen Concentration--Bumocq756 kg (281 lb)06/19/2024 2:15 PM EDTHeight 162.6 cm (5' 4 )06/19/2024 2:15 PM EDTBody Mass Index48.2309 2:15 PM EDT Plan of Treatment Health MaintenanceDue DateLast DoneCommentsCT Qetffrlbsizp69/09/1964FIT-DNA 1963FIT1963FOBT1963Medicare Annual Wellness (AWV)1963 Mswnqvresskej58/09/1964Diabetes: Retinopathy Hjovqnzos83/09/1974Diabetes: Urine Protein Xjlvyxrbi27/09/1983Pneumococcal Vaccine: Pediatrics (0 to 5 Years) and At-Risk Patients (6 to 64 Years) (1 of 2 - PCV)1982Pap Smear1984 Cervical Cancer Zvpmhuchf75/09/1994HPV/Iozbgc3310/02/1993Diabetes: Hemoglobin A1C /08/2022, 04/03/2022, 04/04/20218355Lvhrujikt18, 2COVID-19 Vaccine ( season)5110/03/2020, 07/12/2021 Influenza Vaccine (#1)7338Ysiclmzprej99/30/23468701/21/2019Colorectal Cancer Rurshsyqd83/30/2029 Procedures Procedure NamePriorityDate/TimeAssociated DiagnosisCommentsHEMOGLOBIN M4ORiezena 07/05/2022 BI MAMMOGRAM SCREENING TOMOSYNTHESIS OLHZFEJFNMcixhky25/13/2022 XFCEZEEBETRNuaxfoq74/30/2019 12:00 PM EDT from Last 3 Months or Most Recently Relevant to Health Maintenance Results * (ABNORMAL) Hemoglobin A1c (07/05/2022)ComponentValueRef RangeTest Method Analysis TimePerformed AtPathologist SignatureHEMOGLOBIN A1C/HEMOGLOBIN.TOTAL:MFR:PT:BLD:QN:6.2(H)<=5.9[facility] PERFORMING LAB:see noteNOMS LEGACY EXTERNAL LABComment:[facility] unless otherwise specified [address] [place] [address] Oosymkec (Source)Anatomical Location / LateralityCollection Method / VolumeCollection TimeReceived Time07/05/2022 Narrative Authorizing ProviderResult TypeResult StatusDesis Massey [facility] BLOOD ORDERABLESFinal ResultPerforming OrganizationAddressCity/State/ZIP CodePhone Number [facility] * Bilateral screening mammogram with tomosynthesis (03/06/2022)Anatomical Region LateralityModalityBreastBilateralMammographySpecimen (Source)Anatomical Location / LateralityCollection Method / VolumeCollection TimeReceived Time Narrative 03/06/2022 12:00 AM EDT PERFORMED AT [facility] LOCATION:[place] [address] Exam Date/Time: 03/06/2022 14:21 EDT Reason for Exam: SCREENING Report IMPRESSION: BIRADS 1 NEGATIVE NORMAL INTERVAL FOLLOW-UP.12 ??MONTH RECALL. CLINICAL HISTORY: SCREENING. COMPARISON: ??03/05/2018. COMMENT: Routine views and tomosynthesis views of both breasts were obtained. There are scattered areas of fibroglandular density. No dominant breast mass nor neoplastic calcifications are identified in either breast. There has been no significant change from the previous exam. The examination was reviewed with Computer Aided Detection. Breast Density: No Mammography is very important to your health. The current [employer] and National Comprehensive Cancer Network guidelines recommends annual mammography beginning at age 40. This facility utilizes a reminder system to ensure all patients receive reminder notifications at the appropriate time based on the recommendations of this exam. Board Certified Radiologists. ??Accredited by the ACR and FDA. FINAL REPORT Dictated: ??03/08/2022 4:47 pm ? Edvin Riley Signed (Electronic Signature): ??03/08/2022 4:47 pm Signed by: ??Edvin Riley Transcribed by: ??DP ? Technologist: ??AP Assessment: BI-RADS Category ??1-Negative Recommendation: ??Normal interval follow-up Procedure Note CONVERSION, GENERIC - 03/30/2023 PERFORMED AT [facility] LOCATION:[place] [address] Exam Date/Time: 03/06/2022 14:21 EDT Reason for Exam: SCREENING Report IMPRESSION: BIRADS 1 NEGATIVE NORMAL INTERVAL FOLLOW-UP.12 MONTH RECALL. CLINICAL HISTORY: SCREENING. COMPARISON: 03/05/2018. COMMENT: Routine views and tomosynthesis views of both breasts wereobtained. There are scattered areas of fibroglandular density. No dominant breast mass nor neoplastic calcifications are identified in either breast. There has been nosignificant change from the previous exam. The examination was reviewed with Computer Aided Detection. Breast Density: No Mammography is very important to your health. The current [employer] and National Comprehensive Cancer Network guidelines recommendsannual mammography beginning at age 40. This facility utilizes a reminder system to ensure all patients receivereminder notifications at the appropriate time based on the recommendations of thisexam. Board Certified Radiologists. Accredited by the ACR and FDA. FINAL REPORT Dictated: 03/08/2022 4:47 pm Edvin Riley Signed (Electronic Signature): 03/08/2022 4:47 pm Signed by: Edvin Riley Transcribed by: YAYA Technologist: HAYDER Assessment: BI-RADS Category 1-Negative Recommendation: Normal interval follow-up Authorizing ProviderResult TypeResult StatusLakeshia Massey PAIMG BI PROCEDURESFinal Result * Colonoscopy (01/21/2019 12:00 PM EDT)Anatomical RegionLateralityModality EndoscopySpecimen (Source)Anatomical Location / LateralityCollection Method / VolumeCollection TimeReceived Time01/21/2019 12:00 PM EDT Narrative 01/21/2019 12:00 PM EDT PERFORMED AT [facility] LOCATION:[id number] see report Procedure Note CONVERSION, GENERIC - 02/07/2023 PERFORMED AT [facility] LOCATION:[id number] see report Authorizing ProviderResult TypeResult StatusNia Crow MDENDOSCOPY PROCEDURE ORDERABLESFinal Result from Last 3 Months or Most Recently Relevant to Health Maintenance Insurance Care Teams Team MemberRelationshipSpecialtyStart DateEnd Date Unallocated, Noms MD Reji [address] [place], [place] [address] [facility] - General05/30/23
--- OUTSIDE RECORDS SUMMARY | 2025-08-19 12:08 | XMS_ITS | Continuity of Care Document ---
Author Organization [facility]. Address [address] [place] [address] Phone [phone] Care Team Providers Care Trial Court Justice Name Role Phone Gogo Jorge [employer]-Marla Care Team Information [facility] [phone] Assessments Date Code Description Provider 09/29/2024 E87.1 Hypo-osmolality and hyponatr emia Taylor Samuels M.D. 09/29/2024 I10 Essential (primary) hyperten fernando Samuels M.D. 09/29/2024 E11.22 Type 2 diabetes mellitus with diabetic chronic kidney disease Taylor Samuels M.D. 09/29/2024 I73.9 Peripheral vascular disease, unspecified Taylor Samuels M.D. 09/26/2024 E87.1 Hypo-osmolality and hyponatr rafia Piper MD 09/26/2024 I10 Essential (primary) hyperten fernando Piper MD 09/26/2024 E11.22 Type 2 diabetes mellitus with diabetic chronic kidney disease Elijah Piper MD 09/26/2024 I73.9 Peripheral vascular disease, unspecified Elijah Piper MD
--- OUTSIDE RECORDS SUMMARY | 2025-08-19 12:08 | XMS_ITS | Encounter Summary ---
Author Organization [facility] Address [address] [place] [address] Care Team Providers Care Press Clipper Name Role Phone Cielo Bermudez MD Unavailable [phone] Nia Crow MD Primary Care Provider [phone] Source Comments In the event this information is protected by the Federal Confidentiality of Alcohol and Drug AbusePatient Records regulations: The Federal rules restrict any use of the information to criminally investigate or prosecute any alcohol or drug abuse patient.[facility] Encounter Details DateTypeDepartmentCare Team (Latest Contact Info)Wgwljmiytmj23/23/2025Refill [facility] [address] [place] [address] Lianne Woo APRN.[facility] [address] [place] [address] Social History Tobacco UseTypesPacks/DayYears UsedDateSmoking Tobacco: Every DayCigarettesArea Deprivation IndexAnswerDate RecordedNational Score (1-100), lower number is lower tffk438501/23/2023State Score (1-10), lower number is lower riskNot on file 3Data from: https://www.neighborhoodatlas.medicine.[facility].edu/. Last address used for [address] [facility]3CommentsUnknown Sex and Gender InformationValueDate RecordedSex Assigned at BirthNot on file Legal FbgBbpltm37/02/2012 9:36 AM ESTGender IdentityNot on fileSexual OrientationNot on filedocumented as of this encounter Miscellaneous Notes * Telephone Encounter - Lianne Woo APRN.SECURITY LEAD - 08/16/2025 12:27 PM EST Nursing reported pt c/o pain on right hip. Refuses to change positions in bed. X-rays completed in past per nurse. Added robaxin times 3 days however will not be available from pharmacy until am. Angella Joy script sent times 1 day prn. Nursing updated that helped in past. Pt called 911 multiple times today due to pain. Lianne Woo APRN.SECURITY LEAD documented in this encounter Plan of Treatment Not on file documented as of this encounter Visit Diagnoses Diagnosis Pain- Primary Generalized pain documented in this encounter Care Teams Team MemberRelationshipSpecialtyStart DateEnd Date Nia Crow MD [address] [place] [address] PCP - GeneralFamily Medicine10/11/22 Cielo Bermudez MD [address] [place] [address] ReferringDermatology1documented as of this encounter
--- OUTSIDE RECORDS SUMMARY | 2025-08-19 12:08 | XMS_ITS | Clinical Summary ---
Author Organization [facility] Address [address] [place] [address] Care Team Providers Care Contract Administrative Assistant Name Role Phone Lakeshia Massey MD Primary Care Provider [phone] Allergies Active AllergyReactionsCriticalityNoted DateCommentsPenicillinsAnaphylaxisHigh 10/10/2022 And rash Medications MedicationSigDispense QuantityRefillsLast FilledStart DateEnd DateStatus albuterol 2.5 mg /3 mL (0.083 %) nebulizer solution inhale contents of 1 vial ( 3 milliliters ) in nebulizer by mouth... (REFER TO PRESCRIPTION NOTES).05/09/2022ctive albuterol 90 mcg/actuation inhaler inhale 1 puff by mouth and INTO THE LUNGS every 4 hours if wvfzkn8407/16/2022 Active amLODIPine (Norvasc) 5 mg tablet Take 5 mg by mouth in the morning.08/16/2022ctive Symbicort 160-4.5 mcg/actuation inhaler Inhale 2 puffs in the morning and at bedtime.07/25/2022ctive Calcium 600 + D,3, 600 mg-10 mcg (400 unit) tablet Take 1 tablet by mouth in the morning and at bedtime.12/13/2021ctive citalopram (CeleXA) 40 mg tablet Take 40 mg by mouth at bedtime.09/15/2022ctive FeroSuL 325 mg (65 mg iron) tablet Take 1 tablet by mouth in the morning.09/21/2022ctive hydroCHLOROthiazide (HYDRODiuril) 25 mg tablet Take 25 mg by mouth in the morning.09/01/2022ctive levothyroxine (Synthroid, Levoxyl) 200 mcg tablet Take 200 mcg by mouth before breakfast.08/09/2022ctive loperamide (Imodium) 2 mg capsule take 1 capsule by mouth every 4 hours if needed for LOOSE SIJKYB9802/24/2022ctive losartan (Cozaar) 50 mg tablet Take 50 mg by mouth in the morning.09/01/2022ctive montelukast (Singulair) 10 mg tablet Take 10 mg by mouth in the evening.08/31/2022ctive Therems Multivitamin 400 mcg tablet Take 1 tablet by mouth in the morning.10/10/2022ctive omeprazole (PriLOSEC) [address] capsule take 1 capsule by mouth every morning 30 MINUTES before MORNING MEAL12/11/2021 Active polyethylene glycol (Glycolax) 17 gram/dose powder Take 17 g by mouth if needed.03/14/2022ctive simvastatin (Zocor) 20 mg tablet Take 20 mg by mouth at bedtime.09/15/2022ctive Januvia 100 mg tablet Take 100 mg by mouth in the morning.09/20/2022ctive metFORMIN (Glucophage) 500 mg tablet Take 500 mg by mouth in the evening.Active aspirin 81 mg EC tablet Take 81 mg by mouth in the morning.Active insulin glargine (Lantus) 100 unit/mL injection Inject 15 Units under the skin at bedtime. IF BLOOD SUGAR IS OVER 200Active Active Problems ProblemNoted DateDiagnosed DateWound of groin11/18/2022ostoperative wound uvssdgfqkc81/25/2023 Overview (11/18/2022): Right groin s/p right ileofemoral endarterectomy with patch angioplasty Hard of ctkhaoh9811/09/2022AOD (peripheral arterial occlusive disease)11/09/2022 Chronic obstructive pulmonary waxgszy1311/07/2022iabetes mellitus, type 2 11/07/2022 Overview (11/07/2022): On insulin CAD (coronary artery disease)11/07/2022HTN (hypertension)11/07/2022 Jbrrbhfpjvuylo30/14/2023Nonalcoholic fatty liver ipssxas8111/07/2022ladder cancer 11/07/2022ell's palsy11/07/20224644Agavfhhlev70/14/2023VD (peripheral vascular disease)11/07/2022hronic ulcer of right foot, with fat layer bcrwxey79/ Anatomical narrow angle glaucoma with borderline intraocular lxxinhfh24/17/2021 Nuclear senile fgpjvojg55/17/2021ncounter for screening for malignant neoplasm of colon04/04/2021hronic /13/2020Sensorineural hearing loss, pqtubhhhr45/13/2020Diabetic peripheral neuropathy associated with type 2 diabetes acafsmrd06/17/2020Type 2 diabetes mellitus with diabetic peripheral angiopathy without /22/2020Current every day odisqk6701/20/2020Class 3 severe obesity due to excess calories with body mass index (BMI) of 40.0 to 44.9 in adult01/20/2020Onychomycosis due to wluljtjklzya83/28/2020Neoplasm of uncertain behavior of skin01/20/2020Pain in limb01/20/2020Verruca plantaris 01/20/2020Type 2 diabetes mellitus with peripheral qzgvskzazu26/28/2020 Dfsbnlhyczix45/08/2012History of tobacco use01/30/20122262Hfgicuzcc93/08/2012Long term current use of anticoagulant fbmjzmy6101/30/2012 Resolved Problems ProblemNoted DateDiagnosed DateResolved DateNASH (nonalcoholic steatohepatitis) / Social History Tobacco UseTypesPacks/DayYears UsedDateSmoking Tobacco: Every DayCigarettes Smokeless Tobacco: Never Tobacco Cessation:Ready to Q uit: Not Asked; Counseling Given: Not Answered Alcohol UseStandard Drinks/WeekCommentsYes0 (1 standard drink = 0.6 oz pure alcohol)ONCE A YEARHumiliation, Afraid, Rape, and Kick questionnaireAnswerDate RecordedWithin the last year, have you been afraid of your partner or ex-partner?No11/18/2022Emotionally AbusedNot on file11/18/2022hysically Abused Not on file11/18/2022Sexually AbusedNot on file11/18/2022Overall Financial Resource Strain (CARDIA)AnswerDate RecordedHow hard is it for you to pay for the very basics like food, housing, medical care, and heating?Not very hard 11/18/2022UT Safety & EnvironmentAnswerDate RecordedFear of Current or Ex-PartnerNot on file12/02/2023Emotionally AbusedNot on file12/02/2023hysically AbusedNot on file12/02/2023Sexually AbusedNot on file12/02/2023hysically or Sexually AbusedNot on file12/02/2023TransportationAnswerDate RecordedIn the past 12 months, has lack of transportation kept you from medical appointments or from getting medications?No11/18/2022Lack of Transportation (Non-Medical)Not on file 11/18/2022Housing Stability Vital SignAnswerDate RecordedUnable to Pay for Housing in the Last YearNot on file11/18/2022Number of Places Lived in the Last YearNot on file11/18/2022In the last 12 months, was there a time when you did not have a steady place to sleep or slept in ashelter (including now)?No 11/18/2022Hunger Vital SignAnswerDate RecordedWithin the past 12 months, you worried that your food would run out before you got the money to buymore.Never true11/18/2022Ran Out of Food in the Last YearNot on file11/18/2022 CommentsUnknownSex and Gender InformationValueDate RecordedSex Assigned at Not on fileLegal FzxRbgvcd49/17/2023 10:00 AM ESTGender IdentityNot on file Sexual OrientationNot on file Last Filed Vital Signs Vital SignReadingTime TakenCommentsBlood Rtrqdmow328/7411/19/2022 7:32 AM EST Qrmxh684611/19/2022 7:32 AM YAYXeinobzxooh91.5 ??C (97.7 ??F)11/19/2022 7:32 AM ESTRespiratory Uakr314411/19/2022 7:32 AM ESTOxygen Xicxmdlyqx37%11/19/2022 8:43 AM ESTInhaled Oxygen Concentration--Ggetxd990 kg (278 lb 10.6 oz)11/19/2022 5:49 AM TZNWwcxmu560.5 cm (5' 3.98 )11/18/2022 9:58 PM ESTBody Mass Index47.87 11/18/2022 9:58 PM EST Plan of Treatment Health MaintenanceDue DateLast DoneCommentsCT Rtpmhejjxesj40/09/1964FIT-DNA 1963FIT1963FOBT1963Medicare Annual Wellness (AWV)1963 Bzpkggsgimynj64/09/1964Diabetes: Retinopathy Zewnceqko60/09/1974Depression Cyamcosuw03/09/1976Diabetes: Urine Protein Ejcdiyfwv53/09/1983Pap Smear 1984Adult Tdvrnzg8210/02/1985Cervical Cancer Teecsffzc76/09/1994HPV/Cotest 1993Diabetes: Hemoglobin A1C/08/2022Zoster Vaccines (2 of 2) /02/20235421Feumclwys04OVID-19 Vaccine ( - season)2025Influenza Vaccine (#1)05/25/20257024Yoamrvcvsxw22 Colorectal Cancer Hvvivhpfn20/30/2029Pneumococcal Vaccine: Pediatrics (0 to 5 Years) and At-Risk Patients (6 to 64 Years)Ywlryyjsq07/06/2023, 06/30/2021HIB VaccinesAged OutNo longer eligible based on patient's age to complete this topic HPV VaccinesAged OutNo longer eligible based on patient's age to complete this topicIPV VaccinesAged OutNo longer eligible based on patient's age to complete this topicMeningococcal B VaccineAged OutNo longer eligible based on patient's age to complete this topicMeningococcal VaccineAged OutNo longer eligible based on patient's age to complete this topicRotavirus VaccinesAged OutNo longer eligible based on patient's age to complete this topic Medical Devices ImplantedTypeAreaManufacturerDevice IdentifierShelf Expiration DateModel / Serial / LotPatch,Vaselenad,[id number] - [id number] Implanted:Qty: 2 on 11/07/2022 by [facility]aima Dowd [facility]GraftRight: RickyinBASANJEEV [id number] / / [id number]:PN [id number] Insurance Advance Directives * Full Code (Latest Code Status on File) Date ActivatedDate InactivatedComments11/18/2022 10:24 PM2 3:46 PM * Full Code Date ActivatedDate InactivatedComments11/07/2022 3:41 PM2 7:09 PM * Full Code Date ActivatedDate InactivatedComments11/07/2022 3:41 PM2 3:41 PM Care Teams Team MemberRelationshipSpecialtyStart DateEnd Date Lakeshia Massey MD [address], [facility] PCP - General11/08/22
--- OUTSIDE RECORDS SUMMARY | 2025-08-19 12:08 | XMS_ITS | Encounter Summary ---
Author Organization [facility] Address [address] [place] [address] Care Team Providers Care Telegraph Repeater Installer Name Role Phone Cielo Bermudez MD Unavailable [phone] Nia Crow MD Primary Care Provider [phone] Source Comments In the event this information is protected by the Federal Confidentiality of Alcohol and Drug AbusePatient Records regulations: The Federal rules restrict any use of the information to criminally investigate or prosecute any alcohol or drug abuse patient.[facility] Encounter Details DateTypeDepartmentCare Team (Latest Contact Info)Eefmcjiyamw60/10/2025[place] [address] Shahzad Anderson APRN.[facility] [address] [place] [address] Social History Tobacco UseTypesPacks/DayYears UsedDateSmoking Tobacco: Every DayCigarettesArea Deprivation IndexAnswerDate RecordedNational Score (1-100), lower number is lower ejhw399801/23/2023State Score (1-10), lower number is lower riskNot on file 3Data from: https://www.neighborhoodatlas.medicine.[facility].edu/. Last address used for xct[address]3CommentsUnknown Sex and Gender InformationValueDate RecordedSex Assigned at BirthNot on file Legal RtpThisyn89/02/2012 9:36 AM ESTGender IdentityNot on fileSexual OrientationNot on filedocumented as of this encounter Progress Notes * Shahzad Anderson APRN.CNS - 08/03/2025 12:00 AM EST [facility] NOTE NAME: GALI SOLOMON [facility] NO.: [id number] DATE OF SERVICE: 08/03/2025 ATTENDING PHYSICIAN: BRENDA Yang [facility] Chart note REASON FOR VISIT: The patient is a resident of [facility]. This is a monthly visit for multiple medical issues. Staff reported the patient signed out AMA, called the squad and went to the emergency room for right hip pain. Staff also reports the patient has a lump that is draining yellow and bloody drainage to the upper right arm. Upon entering the room, found the patient calm, alert, lying on right side lying position. The patient does not appear to be in distress or discomfort. The patient states did go to the emergency room for right hip pain. The patient states was told to take acetaminophen for the pain. The patient states 2 days ago developed a cyst to the right upper arm. The patient states has no pain at this time. The patient states is breathing well. No fever, chills, or nausea. No cough. States her appetite has been good. Bowels are moving, has been drinking fluids and denies urinary symptoms. MEDICATIONS: Have been reviewed. EXAMINATION: Temp 98.2, blood pressure 122/76, pulse 88, respirations 18, pulse ox 97% on room air,weight 204.2 pounds. Respiratory: Respirations are easy and unlabored with patient at rest. Lung sounds are clear. Heart: Rate and rhythm regular. Abdomen: Soft and nontender with palpation. Bowel sounds present x4. Extremities: Nonedematous. Skin: There is an area of flat and reddened right upperarm near the axillary region. Bandage removed with bloody drainage. There is no erythema and no purulent drainage at this time. Musculoskeletal: The patient is noted to be moving bilateral lower extremities without difficulty, is lying on her right hip. IMPRESSION AND PLAN: 1. Sebaceous cyst, cleanse area with normal saline and apply Bactroban and dry sterile dressing twice daily until resolved. 2. Right hip pain. Continue with lidocaine patch, Tylenol as needed. 3. Chronic obstructive pulmonary disease, respiratory status is stable, on DuoNeb nebs, albuterol inhaler, Advair. 4. Iron deficiency anemia, on ferrous sulfate. 5. Diabetes, the patient has good glycemic control, last blood sugar 135, Jardiance, dulaglutide, lispro per sliding scale. 6. Hypertension, the patient has fair blood pressure control, continue antihypertensives. 7. Coronary artery disease, no coronary concerns identified, on aspirin, Plavix. 8. Peripheral vascular/peripheral artery disease, on Plavix, aspirin, continue to monitor for ischemia or cyanosis. 9. Depression, the patient is calm and cooperative with examination. No behavioral issues reported per staff, the patient does follow with Psychiatric Services, on Zoloft. DICTATED BY: BRENDA Yang/AQT JOB# [id number] [facility] documented in this encounter Plan of Treatment Not on file documented as of this encounter Visit Diagnoses Not on filedocumented in this encounter Care Teams Team MemberRelationshipSpecialtyStart DateEnd Date Nia Crow MD [address] [place] [address] PCP - GeneralFamily Medicine10/11/22 Cielo Bermudez MD [address] [place] [address] ReferringDermatolog10/11/22documented as of this encounter
== END 2025-08-19 12:06 | disposition home or self-care (01) ==
LOC: PST 12:05
PROVIDERS: Visit Provider Urology
DX: Z01.818 Encounter for other preprocedural examination (principal); Z85.51 Personal history of malignant neoplasm of bladder; E11.9 Type 2 diabetes mellitus without complications; I25.10 Atherosclerotic heart disease of native coronary artery without angina pectoris; J44.9 Chronic obstructive pulmonary disease, unspecified; I10 Essential (primary) hypertension; Z86.718 Personal history of other venous thrombosis and embolism

== ENCOUNTER 2025-08-25 10:25 | Day surgery (SDC) | payer MEDICARE, SELFPAY ==
--- OUTSIDE RECORDS SUMMARY | 2025-08-25 10:30 | XMS_ITS | Continuity of Care Document ---
Author Organization [facility] Rula joseph. Address [address] [place] [address] Phone [phone] Care Team Providers Care Grain Farmworker Name Role Phone Gogo Jorge CERTIFIED DRIVER EXAMINER-Marla Care Team Information R [facility] [phone] Assessments Date Code Description Provider 09/29/2024 E87.1 [...]
--- OUTSIDE RECORDS SUMMARY | 2025-08-25 10:30 | XMS_ITS | Clinical Summary ---
Author Organization [facility] Address [address] [place] [address] Phone Care Team Providers Care Honing Machine Set Up Operator Name Role Phone Unavailable Primary Care Provider Unavailabl e Encounters DateTypeDepartmentCare OukxKyaysohxofs58/25/2025Orders Only [facility] [address] [place] [address] Zach Seymour DO from Last 3 Months Social History Tobacco UseTypesPacks/DayYears UsedDateSmoking Tobacco: Never Assessed CommentsUnknownSex and Gender InformationValueDate RecordedSex Assigned at Not on fileLegal GgnSqiefq87/25/2022 9:57 PM ESTGender IdentityNot on fileSexual OrientationNot on file Plan of Treatment Not on file Procedures Procedure NamePriorityDate/TimeAssociated DiagnosisCommentsCT ABDOMEN PELVIS WO IV ZCXWAJUA00/25/2025 4:00 AM EDT NON-UH HIE C PIXWRZgxdtji31/25/2025 3:59 AM EDT NON-UH HIE LENGDjxktic98/25/2025 3:59 AM EDT NON-UH HIE LIPASE CLMMKCtlzibh03/25/2025 3:59 AM EDT NON-[facility] HIE HEP FUNC LUVSGEqwboiy23/25/2025 3:59 AM EDT NON-UH HIE RBCRpcqyot04/25/2025 3:59 AM EDT NON-[facility] HIE UA WITH CULT HODXBebovye40/25/2025 3:59 AM EDT NON-UH HIE CBC W/ AUTO YEIVGnmpyzw78/25/2025 3:59 AM EDT NON-UH HIE UA WITH CULT RFLX EQQkojfcp36/25/2025 3:59 AM EDT from Last 3 Months [...] TimePerformed AtPathologist SignatureNON- HIE UA Spec DescClean [facility] Hospitalpecimen (Source)Anatomical Location / LateralityCollection Method / VolumeCollection TimeReceived Time [facility] Lab- Urine06/18/2025 3:59 AM EDT Narrative Authorizing ProviderResult TypeResult StatusZach Seymour DOLAB BLOOD ORDERABLES Final ResultPerforming OrganizationAddressCity/State/ZIP CodePhone Number [facility] [address] [id number], * (ABNORMAL) NON-UH HIE UA WITH CULT RFLX (06/18/2025 3:59 AM EDT)ComponentValue Ref RangeTest MethodAnalysis TimePerformed AtPathologist SignatureNON-UH HIE UA ColorYellowYellowSELECT MEDICAL SPECIALTY HOSPITAL - [facility]LEVEL[facility]-FAIRHILLComment:Microscopic readings are only performed on those samples that meet specific criteria set forth by [facility].NON-[facility] HIE UA ClarityTurbid(A)Clear [facility]NON- HIE UA Spec Grav1.0321.005 - 1.030FISHMEDSTAR [facility] UA pH8.55.0 - 9.0[facility] U[facility] ProteinTrace(A)Negative mg/dLBARBERTON CITIZENS [facility]OSPITAL UA Glucose4+(A)Negative mg/dLBARBERTON CITIZENS HOSPITAL UA KetonesNegativeNegative mg/dLBARBERTON CITIZENS HOSPITAL UA Bili NegativeNegative mg/dLBARBERTON CITIZENS HOSPITAL UA BloodNegative Negative mg/dLBARBERTON CITIZENS HOSPITAL UA Nitrite2+(A)Negative mg/dLBARBERTON CITIZENS HOSPITAL UA UrobilinogenNegativeNegative mg/dLBARBERTON CITIZENS HOSPITAL UA Leuk Rcs543 Tanya/uL(A)Negative CD:[id number] CITIZENS HOSPITAL UA WUJ20-20(A)0 - 5 CD:[id number] CITIZENS HOSPITAL UA RBC0-30 - 3 CD:[id number] CITIZENS HOSPITAL UA Squam Epithelial3-4 CD:[id number] CITIZENS HOSPITAL UA Bacteria3+(A)Trace /HPF [facility] UA MUCOUSTraceNegative CD:[id number] [facility] UA TRIP BARB CRYSPresent(A)CD:[id number] [facility] UA CA OX CRYSTALPresent(A)CD:[id number] [facility] UA Amorph CrysPresent(A)CD:[id number] [facility]ISBURGpecimen (Source)Anatomical Location / Laterality Collection Method / VolumeCollection TimeReceived TimeTULSA C[facility] FOR [facility] [place] Lab- Urine 06/18/2025 3:59 AM EDT Narrative Authorizing ProviderResult TypeResult StatusZach RAMIREZ BLOOD ORDERABLES Final ResultPerforming OrganizationAddressCity/State/ZIP CodePhone Number [facility] [address] [place] [address], [place] * (ABNORMAL) NON- HIE CBC w/ Auto Diff (06/18/2025 3:59 AM EDT)ComponentValue Ref RangeTest MethodAnalysis TimePerformed AtPathologist [facility] Memorial HospitalE WBC7.84.0 - 11.0 E9/LFMERCY HEALTH WEST HOSPITALE RBC5.44.3 - 5.9 E12/LFMERCY HEALTH WEST HOSPITALE HGB15.712.0 - 16.0 gm/dLPREMIER HEALTH [facility] N[facility]HE HCT46.4(H)34.0 - 46.0 %[facility] RDW15.8(H)10.9 - 14.2 %[facility] MCH29.327.0 - 34.0 pgFBRECKSVILLE VA / CRILLE [facility]PITAL HIE MCHC33.831.4 - 36.0 gm/dLPREMIER HEALTH [facility] MCV86.680.0 - 100.0 fLPREMIER HEALTH [facility] MPV6.86.4 - 10.8 fLPREMIER HEALTH [facility] AZMULVHA263.0150.0 - 500.0 E9/[facility]PITALE NEUTRO AUTO77.2(H)36.0 - 75.0 %[facility] HIE LYMPH AUTO15.114.0 - 50.0 %[facility] MONO AUTO5.44.0 - 14.0 %[facility] EOS AUTO0.80.0 - 8.0 %[facility] BASOPHIL AUTO1.50.0 - 2.0 %[facility] NEUTRO ABSOLUTE6.02.0 - 7.5 E9/[facility] HIE LYMPH ABSOLUTE1.21.0 - 4.0 E9/LFBRECKSVILLE VA / CRILLE [facility]PITAL HIE MONO ABSOLUTE0.40.2 - 1.0 E9/LFBRECKSVILLE [facility] HIE EOS ABSOLUTE0.10.0 - 0.5 E9/LFMERCY HEALTH WEST HOSPITALE BASOPHIL ABSOLUTE0.10.0 - 0.2 E9/LFLOUIS STOKES CLEVELAND VA MEDICAL CENTERpecimen (Source) Anatomical Location / LateralityCollection Method / VolumeCollection Time Received TimeTULSA CENTER FOR [facility]IOR[facility] Lab- Blood06/18/2025 3:59 AM EDT Narrative Authorizing ProviderResult TypeResult StatusZach CLAYAB BLOOD ORDERABLES Final ResultPerforming OrganizationAddressCity/State/ZIP CodePhone Number [facility] [address] [place] [address], [place] * (ABNORMAL) NON-UH HIE BMP (06/18/2025 3:59 AM EDT)ComponentValueRef RangeTest MethodAnalysis TimePerformed AtPathologist SignatureNON- HIE GLUCOSE ZSE009 55 - 199 mg/dLPREMIER HEALTH [facility] HIE BUN32(H)5 - 21 mg/dLSOUTHERN OHIO MEDICAL CENTER- HIE CREATININE0.50.5 - 1.3 mg/dLPREMIER [facility]ALTH [facility]HE BUN/CREAT RATIO64(H)10 - 20 No UnitsSOUTHERN OHIO MEDICAL CENTER- HIE CALCIUM LVL10.78.9 - 11.1 mg/dLSOUTHERN OHIO MEDICAL CENTER- HIE SODIUM UYX367(L)135 - 145 mmol/LFTHE [facility] NON- HIE POTASSIUM LVL4.23.5 - 5.3 mmol/LFBRECKSVILLE VA [facility]IL[facility] HIE CTRNBFSF569261 - 111 mmol/LFWVUMEDICINE BARNESVILLE [facility]ITAL- HIE XW55180 - 31 mmol/LFBRECKSVILLE VA / [facility] HIE AGAP96 - 16 mEq/LFLOUIS STOKES CLEVELAND VA MEDICAL CENTERpecatrium health union westn (Source)Anatomical Location / LateralityCollection Method / VolumeCollection TimeReceived [facility] Lab- Blood06/18/2025 3:59 AM EDT Narrative Authorizing ProviderResult TypeResult StatusZach CLAYAB BLOOD ORDERABLES Final ResultPerforming OrganizationAddressCity/State/ZIP CodePhone Number [facility] [address] [place] [address], [place] * NON-[facility] HIE Lipase Level (06/18/2025 3:59 AM EDT)ComponentValueRef RangeTest MethodAnalysis TimePerformed AtPathologist SignatureNON- HIE LIPASE SSM6529 - 58 unit/LFLOUIS STOKES CLEVELAND VA MEDICAL CENTERpecimen (Source)Anatomical Location / LateralityCollection Method / VolumeCollection TimeReceived TimeTULSA CENTER FOR BEHAVIOR[facility] Lab- Blood06/18/2025 3:59 AM EDT Narrative Authorizing ProviderResult TypeResult StatusZach CLAYAB BLOOD ORDERABLES Final ResultPerforming OrganizationAddressCity/State/ZIP CodePhone Number [facility] [address] [place] [address], [place] * (ABNORMAL) NON-[facility] HIE Hep Func Panel (06/18/2025 3:59 AM EDT)ComponentValueRef RangeTest MethodAnalysis TimePerformed AtPathologist SignatureSAGE MEMORIAL [facility]- HIE ALT12 6 - 46 Int._Unit/LFBRECKSVILLE VA / [facility] HIE SII073 - 43 Int._Unit/LFBRECKSVILLE [facility] HIE ALBUMIN LVL3.83.3 - 5.0 gm/dL [facility] HIE GLOBULIN4.6(H)1.4 - 4.0 gm/dLPREMIER HEALTH [facility] HIE A/G RATIO0.8(L)1.1 - 2.2FBRECKSVILLE [facility] / [facility] HIE ALK QBYX540(H)21 - 98 Int._Unit/LFTHE [facility] NON- HIE BILI DIRECT0.10.0 - 0.4 mg/dLPREMIER [facility]ALTH [facility] HIE BILI INDIRECT0.30.1 - 0.9 mg/dLPREMIER [facility]ALTH [facility] HIE BILI TOTAL0.40.0 - 1.1 mg/dLPREMIER [facility] HIE TOTAL PROTEIN8.4 (H)6.0 - 7.8 gm/dLFISHMEDSTAR GOOD SAMARITAN HOSPITALpecimen (Source)Anatomical Location / LateralityCollection Method / VolumeCollection TimeReceived Time [facility] Lab- Blood06/18/2025 3:59 AM EDT Narrative Authorizing ProviderResult TypeResult StatusZach Seymour DOLAB BLOOD ORDERABLES Final ResultPerforming OrganizationAddressCity/State/ZIP CodePhone Number [facility] [address] [place] [address], * NON-UH HIE eGFR (06/18/2025 3:59 AM EDT)ComponentValueRef RangeTest Method Analysis TimePerformed AtPathologist SignatureNON-UH HIE DNBW053>=59 mL/min/1.73 e2CBMCEFKETTERING HEALTH MIAMISBURGpecimen (Source)Anatomical Location / LateralityCollection Method / VolumeCollection TimeReceived TimeTULSA CENTER FOR BE[facility] Lab- Blood06/18/2025 3:59 AM EDT Narrative Authorizing ProviderResult TypeResult StatusZach Seymour DOL BLOOD ORDERABLES Final ResultPerforming OrganizationAddressCity/State/ZIP CodePhone Number [facility] [address] [facility] [place] [address], * NON-UH HIE C Urine (06/18/2025 3:59 AM EDT)Specimen (Source)Anatomical Location / LateralityCollection Method / VolumeCollection TimeReceived Time [facility] U XsdnaKcutt61/25/2025 3:59 AM EDT Narrative [facility] - 06/20/2025 9:08 AM EDT Microbiology PROCEDURE: ?Urine Culture ??[R1] ?ACCESSION: ?[id number] SOURCE: ? U CleanCatch ? BODY SITE: [...] R1: ?? This test was performed at: ?[facility], [address] [place] [address], [phone] [phone], [place], Authorizing ProviderResult TypeResult StatusZach RAMIREZ BLOOD ORDERABLES Edited Result - FinalPerforming OrganizationAddressCity/State/ZIP CodePhone Number [address] [address], [place] from Last 3 Months
--- OUTSIDE RECORDS SUMMARY | 2025-08-25 10:30 | XMS_ITS | Clinical Summary ---
Author Organization [facility] Address [address] [place] [address] Care Team Providers Care Top Coater Name Role Phone Unallocated, Noms Provider Primary Care Provi clifton Allergies Active AllergyReactionsCriticalityNoted DateCommentsPenicillinsAnaphylaxis, Unknown,Shortness of buxqvaEful37/29/2014 And rash Medications MedicationSigDispense QuantityRefillsLast FilledStart DateEnd [...] diabetic neuropathy, without long-term current use of kjqztnf4702/13/2023ain in left toe(s)02/13/20239144Luvfvgnuwhcco66/23/2023ain in right toe(s)02/13/2023rimary mjyynntzyboz61/14/2023 Encounters DateTypeDepartmentCare DioiSpigmglrrrv62/20/2025Telephone [facility] [address] [facility] [place] [address] Anahi Menchaca MA from Last [...] Last Filed Vital Signs Vital SignReadingTime TakenCommentsBlood Eqwpeoqo874/7909 2:15 PM EDT Vrzfz781206/19/2024 2:15 PM EDTTemperature--Respiratory Rate--Oxygen Saturation-- Inhaled Oxygen Concentration--Wzoras526 kg (281 lb)06/19/2024 2:15 PM EDTHeight 162.6 cm (5' 4 )06/19/2024 2:15 PM EDTBody Mass Index48.2309 2:15 PM EDT Plan of Treatment Health MaintenanceDue DateLast DoneCommentsCT Arwzivcdtbkq59/09/1964FIT-DNA 1963FIT1963FOBT1963Medicare Annual Wellness (AWV)1963 Cfdtoxwnqkjpp95/09/1964Diabetes: Retinopathy Aorotlxpr69/09/1974Diabetes: Urine Protein Iifqwyjne33/09/1983Pneumococcal Vaccine: Pediatrics (0 to 5 Years) and At-Risk Patients (6 to 64 Years) (1 of 2 - PCV)1982Pap Smear1984 Cervical Cancer Ldocipkuz34/09/1994HPV/Kikbgf5210/02/1993Diabetes: Hemoglobin A1C /08/2022, 04/03/2022, 04/04/20210058Jbnqneiei31, 2COVID-19 Vaccine ( season)5110/03/2020, 07/12/2021 Influenza Vaccine (#1)4635Svjpmavdaha13/30/78013501/21/2019Colorectal Cancer Llvrzaxrl55/30/2029 Procedures Procedure NamePriorityDate/TimeAssociated DiagnosisCommentsHEMOGLOBIN B3YMxeqpcu 07/05/2022 BI MAMMOGRAM SCREENING TOMOSYNTHESIS WYDBFFOBCRdphgpt82/13/2022 EGHNRMTBUUJJtzwnaj54/30/2019 12:00 PM EDT from Last 3 Months or Most Recently Relevant to Health Maintenance Results * (ABNORMAL) Hemoglobin A1c (07/05/2022)ComponentValueRef RangeTest Method Analysis TimePerformed AtPathologist SignatureHEMOGLOBIN A1C/HEMOGLOBIN.TOTAL:MFR:PT:BLD:QN:6.2(H)<=5.9[facility] PERFORMING LAB:see noteNOMS LEGACY EXTERNAL LABComment:[facility] unless otherwise specified [address] [place] [address] Gxyjkbwg (Source)Anatomical Location / LateralityCollection Method / VolumeCollection TimeReceived Time07/05/2022 Narrative Authorizing ProviderResult TypeResult StatusDesis Massey [facility] BLOOD ORDERABLESFinal ResultPerforming OrganizationAddressCity/State/ZIP CodePhone Number [facility] * Bilateral screening mammogram with tomosynthesis (03/06/2022)Anatomical Region LateralityModalityBreastBilateralMammographySpecimen (Source)Anatomical Location / LateralityCollection Method / VolumeCollection TimeReceived Time Narrative 03/06/2022 12:00 AM EDT PERFORMED AT [facility] LOCATION:[place] [address] Exam Date/Time: 03/06/2022 14:21 EDT Reason for [...] very important to your health. The current [employer] Cancer [...] Note CONVERSION, GENERIC - 03/30/2023 PERFORMED AT [facility] LOCATION:[place] [address] Exam Date/Time: 03/06/2022 14:21 EDT Reason for [...] very important to your health. The current [employer] [...] Narrative 01/21/2019 12:00 PM EDT PERFORMED AT [facility] LOCATION:[id number] see report Procedure Note CONVERSION, GENERIC - 02/07/2023 PERFORMED AT [facility] LOCATION:[id number] see report Authorizing ProviderResult TypeResult StatusNia Crow MDENDOSCOPY PROCEDURE ORDERABLESFinal Result from Last 3 Months or Most Recently Relevant to Health Maintenance Insurance Care Teams Team MemberRelationshipSpecialtyStart DateEnd Date Unallocated, Noms MD Reji [address] [place], [place] [id number] [facility] - General05/30/23
--- OUTSIDE RECORDS SUMMARY | 2025-08-25 10:30 | XMS_ITS | Clinical Summary ---
Author Organization [facility] Address [address] [place] [address] Care Team Providers Care Forest Pathologist Name Role Phone Lakeshia Massey MD Primary Care Provider [phone] Allergies Active AllergyReactionsCriticalityNoted DateCommentsPenicillinsAnaphylaxisHigh 10/10/2022 And rash Medications MedicationSigDispense QuantityRefillsLast FilledStart DateEnd DateStatus albuterol 2.5 mg /3 mL (0.083 %) nebulizer solution inhale contents of 1 vial ( 3 milliliters ) in nebulizer by mouth... (REFER TO PRESCRIPTION NOTES).05/09/2022ctive albuterol 90 mcg/actuation inhaler inhale 1 puff by mouth and INTO THE LUNGS every 4 hours if yhzwec0607/16/2022 Active amLODIPine (Norvasc) 5 mg tablet Take [...] every 4 hours if needed for LOOSE HYPNYC8202/24/2022ctive losartan (Cozaar) 50 mg tablet Take 50 [...] Problems ProblemNoted DateDiagnosed DateWound of groin11/18/2022ostoperative wound nepwkatrea75/25/2023 Overview (11/18/2022): Right groin s/p right ileofemoral endarterectomy with patch angioplasty Hard of iimmdbv4311/09/2022AOD (peripheral arterial occlusive disease)11/09/2022 Chronic obstructive pulmonary wplogno3411/07/2022iabetes mellitus, type 2 11/07/2022 Overview (11/07/2022): On insulin CAD (coronary artery disease)11/07/2022HTN (hypertension)11/07/2022 Thhymqmsipnklc60/14/2023Nonalcoholic fatty liver zyuybdm5111/07/2022ladder cancer 11/07/2022ell's palsy11/07/20225502Soddixcnxc14/14/2023VD (peripheral vascular disease)11/07/2022hronic ulcer of right foot, with fat layer ivohpby66/ Anatomical narrow angle glaucoma with borderline intraocular puuepgpi17/17/2021 Nuclear senile msmwatut19/17/2021ncounter for screening for malignant neoplasm of colon04/04/2021hronic avqtxxvu07/13/2020Sensorineural hearing loss, laiqbsdso72/13/2020Diabetic peripheral neuropathy associated with type 2 diabetes awmduefz15/17/2020Type 2 diabetes mellitus with diabetic peripheral angiopathy without vqgdiqfj73/22/2020Current every day rsqgzi9301/20/2020Class 3 severe obesity due to excess calories with body mass index (BMI) of 40.0 to 44.9 in adult01/20/2020Onychomycosis due to hisbxvwudnfk16/28/2020Neoplasm of uncertain behavior of skin01/20/2020Pain in limb01/20/2020Verruca plantaris 01/20/2020Type 2 diabetes mellitus with peripheral egxbdytwgk47/28/2020 Ztceqftsezon21/08/2012History of tobacco use01/30/20128588Qanoitutk24/08/2012Long term current use of anticoagulant ovvorry8301/30/2012 Resolved Problems ProblemNoted DateDiagnosed DateResolved DateNASH (nonalcoholic [...] InformationValueDate RecordedSex Assigned at Not on fileLegal HlsNvwvqt56/17/2023 10:00 AM ESTGender IdentityNot on file Sexual OrientationNot on file Last Filed Vital Signs Vital SignReadingTime TakenCommentsBlood Uhdjjoqy265/7411/19/2022 7:32 AM EST Psbwb453911/19/2022 7:32 AM KSZTbrxnhhiurn08.5 ??C (97.7 ??F)11/19/2022 7:32 AM ESTRespiratory Mkpk950411/19/2022 7:32 AM ESTOxygen Dhmpbhdthu54%11/19/2022 8:43 AM ESTInhaled Oxygen Concentration--Lamkiv925 kg (278 lb 10.6 oz)11/19/2022 5:49 AM MVYVhjvjo260.5 cm (5' 3.98 )11/18/2022 9:58 PM ESTBody Mass Index47.87 11/18/2022 9:58 PM EST Plan of Treatment Health MaintenanceDue DateLast DoneCommentsCT Lkircoplfjju54/09/1964FIT-DNA 1963FIT1963FOBT1963Medicare Annual Wellness (AWV)1963 Fnumucjpzdaia98/09/1964Diabetes: Retinopathy Fadekyrey89/09/1974Depression Qigkmxyti55/09/1976Diabetes: Urine Protein Xhsyqldtw76/09/1983Pap Smear 1984Adult Rtdcolc1410/02/1985Cervical Cancer Wklxnojcp05/09/1994HPV/Cotest 1993Diabetes: Hemoglobin A1C/08/2022Zoster Vaccines (2 of 2) /02/20238074Joyykiscq22OVID-19 Vaccine ( - season)2025Influenza Vaccine (#1)05/25/20251181Lqgzsijgqze48 Colorectal Cancer Mqavoynmx94/30/2029Pneumococcal Vaccine: Pediatrics (0 to 5 Years) and At-Risk Patients (6 to 64 Years)Stuhxrqvw88/06/2023, 06/30/2021HIB VaccinesAged OutNo longer eligible based on [...] ImplantedTypeAreaManufacturerDevice IdentifierShelf Expiration DateModel / Serial / LotPatch,Vaselenad,0.4vmn8bk - [id number] Implanted:Qty: 2 on 11/07/2022 by [facility]d [facility]: RickyinBASANJEEV YNEGSKMRGC35/10/[id number] / / [id number]:PN [id number] Insurance Advance Directives * Full Code (Latest Code Status on File) Date ActivatedDate InactivatedComments11/18/2022 10:24 PM2 3:46 PM * Full Code Date ActivatedDate InactivatedComments11/07/2022 3:41 PM2 7:09 PM * Full Code Date ActivatedDate InactivatedComments11/07/2022 3:41 PM2 3:41 PM Care Teams Team MemberRelationshipSpecialtyStart DateEnd Date Lakeshia Massey MD [address], [facility] PCP - General11/08/22
--- OUTSIDE RECORDS SUMMARY | 2025-08-25 10:30 | XMS_ITS | Clinical Summary ---
Author Organization [facility] Address [facility] [id number] [place] [address] Care Team Providers Care Beekeeper Farmer Name Role Phone Unavailable Primary Care Provider Unavailabl e Social History Tobacco UseTypesPacks/DayYears UsedDateSmoking Tobacco: Never AssessedChildcare AnswerDate VlhyjfsmMwtxloplfVlfyeag03/10/2019EmploymentAnswerDate Recorded KwxfjcwudlAmkkbbg39/10/2019Purpose - LifeAnswerDate RecordedPurpose and direction in brhiSkddmmd45/11/2021CommentsUnknownSex and Gender InformationValueDate RecordedSex Assigned at BirthNot on fileLegal SexFemale 07/03/2019 11:15 AM EDTGender IdentityNot on fileSexual OrientationNot on file Plan of Treatment Health MaintenanceDue DateLast DoneCommentsDepression Afrdowthw23/09/1976Tobacco Miapxxapb33/09/1976Adult BMI Bxnoohard70/09/1982DTaP,Tdap and Td Vaccines (1 - Tdap)1982Pap Smear1984Zoster (Shingles) Vaccine (2 of 2)05/24/2023 3COVID-19 Vaccine (3 - 2024- season)511/06/2021, 07/12/2021 Influenza Jtzwtkn2205/25/2025RSV ( or age 60+ yrs) (1 - 1-dose 75+ series) 2038 [employer] Not on file Insurance
--- OUTSIDE RECORDS SUMMARY | 2025-08-25 10:30 | XMS_ITS | Clinical Summary ---
Author Organization [facility] Address [address] [facility] [place] [address] Care Team Providers Care Production Consultant Name Role Phone Unavailable Primary Care Provider Unavailabl e Source Comments The following information is NOT included in Care Everywhere downloads:Psychiatric notes, ECG results, Cardiac Rehab notes, Pulmonary Function notes, data from SmartForms (includes but not limited toPregnancy data,audiograms, eye exams, pre-surgical evaluation notes, well-child exam data).[facility] Allergies Active AllergyReactionsCriticalityNoted WxtzGwosoidiXwhqbgbedvx10/20/2024 Medications MedicationSigDispense QuantityRefillsLast FilledStart DateEnd DateStatus levothyroxine [...] 11:41 AM EDT1ctive Active Problems ProblemNoted DateDiagnosed GpeyRhwxwqhd37/20/5256Iycdlylfeert83/03/2024MRSA /28/2024UTI due to Klebsiella sivxssw9604/20/2024neumonia due to methicillin resistant Staphylococcus aureus (MRSA), unspecified laterality, unspecified part of lung04/20/2024oronary artery disease involving [place] heart, unspecified vessel or lesion type, unspecified whether angina present 04/20/2024Type 2 diabetes mellitus without complication, without long-term current use of xzivmlq8904/20/2024cute respiratory failure with hypoxia and ewtgeiqbnqt21/19/2024Osteomyelitis of lumbar ldptzeux77/17/2024 Immunizations ImmunizationAdministration DatesNext DuePneumococcal conjugate 13 valent (PCV13) (KFS=150)06/30/2021neumococcal conjugate 20 valent (PCV20), polysaccharide JZS794 conjugate, adjuvant, PF (WPJ=623)03/29/2023Zoster Recombinant (RZV,Shingles) (RGW=830)03/29/2023 Social History Tobacco UseTypesPacks/DayYears UsedDateSmoking Tobacco: Never [...] were you homeless or living in a mcfp (including now)?No07/14/2024CommentsUnknownSex and Gender InformationValueDate RecordedSex Assigned at BirthNot on fileLegal Sex Jsgaid1511/23/2020 12:07 PM ESTGender IdentityNot on fileSexual OrientationNot on file Last Filed Vital Signs Vital SignReadingTime TakenCommentsBlood Vdmneqke751/7007/14/2024 10:00 AM EDT Wnasx595507/14/2024 10:00 AM ZACPutzldxcrbb62 ??C (98.6 ??F)07/14/2024 10:00 AM EDTRespiratory Avbo1217 10:00 AM EDTOxygen Iljolhigmb61%07/14/2024 10:00 AM EDTInhaled Oxygen Concentration--Nakkes362.7 kg (266 lb)07/13/2024 7:13 PM CUPHdcmkp781.6 cm (5' 4 )04/19/2024 9:00 PM EDTBody Mass Index45.66004/19/2024 9:00 PM EDT Plan of Treatment Health MaintenanceDue DateLast DoneCommentsFoot Exam1963Eye Exam1963 Urine Protein (microalbumin)1963Hepatitis C Siyjyfhy96/09/1982Tdap Booster 1981Hepatitis A (HAV) Vaccine (optional start 19+ years)1982Pap Smear1984Cologuard (Stool DNA)2008FIT2008RSV vaccine (adult) (1 - Risk 50-74 years 1-dose series)2013nnual Wellness Visit (G0438) 12/23/20217442Hgpzzswvroh10//hingles (RZV) Vaccine (2 of 2) /02/2023Hepatitis B (HBV) Vaccine (optional start 60+ years) 2023Hemoglobin A1C//059803/, 07/05/2022Lipid Numywce9510/18/2024 10/18/2023OVID-19 Vaccine (3 - season)/06/2021, 07/12/2021 Influenza Vaccine (#1)2025asic Metabolic Panel/, 05/12/2024, 05/01/2024, Additional history existsCRC Ptosxfozi69/30/2029 Ewbmzqegous92Pneumococcal Vaccine(s) (50+ yrs)Completed 03/29/2023, 06/30/2021HIV JuumIyjucrskn03/20/2024 Medical Devices ImplantedTypeAreaManufacturerDevice IdentifierShelf Expiration DateModel / Serial / LotCap Lck Creo Nxt Lck Ns Lf Ea1 1200.0000 - [id number] Implanted:Qty: 12 on 04/17/2024 by Jhon Fried MD at INPATIENT DEPARTMENTSSpinal ImplantsN/A: Spine Multi HswrvYfirch8484.0000 / / Scr Bn 6.5mm 45mm Creo Nxt Ea1 7200.1645 - [id number] Implanted:Qty: 10 on 04/17/2024 by Jhon Fried MD at INPATIENT DEPARTMENTSSpinal ImplantsN/A: Spine Multi FgbrsSwempd2618.1645 / / Plate 20mm 0deg Lower Endplat Ea1 151.451 - [id number] Implanted:Qty: 1 on 04/17/2024 by Jhon Fried MD at INPATIENT DEPARTMENTSSpinal ImplantsN/A: Spine Multi RljhdWuhojl525.451 / / Pty Grft Ossifuse Has Fb Bn 10 Ea1 8263.0010s - [id number] Implanted:Qty: 3 on 04/17/2024 by Jhon Fried MD at INPATIENT DEPARTMENTSN/A: Spine Multi SrrjtSxhzwg4026.0010S / / SUPPLYRod Lordotic Ti 5.5 Alloy 200 Ea1 1119.4200 - [id number] Implanted:Qty: 2 on 04/17/2024 by Jhon Fried MD at INPATIENT DEPARTMENTSN/A: Spine Multi HxhujBzjwvi2534.4200 / / Core 20 X 26-34mm Fortify Ea1 151.151 - [id number] Implanted:Qty: 1 on 04/17/2024 by Jhon Fried MD at INPATIENT DEPARTMENTSN/A: Spine Multi OwpjcIzvxjk890.151 / / 20mm Upper Ea1 151.401 - [id number] Implanted:Qty: 1 on 04/17/2024 by Jhon Fried MD at INPATIENT DEPARTMENTSN/A: Spine Multi LqvrtUkjxgm748.401 / / Procedures Procedure NamePriorityDate/TimeAssociated DiagnosisCommentsBASIC METABOLIC PANEL Xqrtbmw6507/14/2024 1:16 AM EDT HIV1 HIV2 AGAB EJGYGkhkgaf88/20/2024 8:48 AM EDT from Last 3 Months or Most Recently Relevant to Health Maintenance Results * (ABNORMAL) BASIC METABOLIC PANEL (07/14/2024 1:16 AM EDT)ComponentValueRef RangeTest MethodAnalysis TimePerformed AtPathologist SudjrichkRnywvmi722(H)74 - 109 mg/dL07/14/2024 2:30 AM [facility]EN[facility] JWIYKCWXYBOyunji311(L)136 - 145 mmol/L1 2:30 AM EDEN[facility] PATHOLOGY LABORATORYPotassium4.83.5 - 5.0 mmol/L1 2:30 AM EDEN[facility] PATH[facility]Y LABORATORYCarbon Jzcsgki4245 - 31 mmol/L1 2:30 AM EDEN[facility] XGZUWMFTUOFcqwiwql43(L)98 - 107 mmol/L1 2:30 AM EDTM PATHOLOGY LABORATORYBlood Urea Enjtgaap815 - 25 mg/dL07/14/2024 2:30 AM [facility] PATHOLOGY LABORATORYCreatinine0.51(L)0.60 - 1.20 mg/dL07/14/2024 2:30 AM [facility] PATHOLOGY LABORATORYCalcium9.78.6 - 10.3 mg/dL07/14/2024 2:30 AM [facility] PATHOLOGY LABORATORYAnion Yft5490 - 20 07/14/2024 2:30 AM [facility] PATHOLOGY LABORATORYEstimated GFR (CKD-EPI)107>=60 mL/min/1.94wad82 2:30 AM [facility] PATHOLOGY LABORATORYComment: 2020 CKD EPI Equation using [...] Med 2021 Vol. 385 Issue 19 Pages 4378-6116 Specimen (Source)Anatomical Location / LateralityCollection Method / Volume Collection TimeReceived TimeBloodBLOOD SPECIMEN / UnknownVenipuncture / Unknown 07/14/2024 1:16 AM EDT1 2:04 AM EDT Narrative Authorizing ProviderResult TypeResult StatusApril Cristy MEDIA RELATIONS MANAGER-CNP98 GENERAL LAB Final ResultPerforming OrganizationAddressCity/State/ZIP CodePhone Number [facility] [address] [place] [address] * HIV1 HIV2 AGAB SCRN (04/12/2024 8:48 AM EDT)ComponentValueRef RangeTest Method Analysis TimePerformed AtPathologist SignatureHIV Ag-Ab ScreenNon-Reactive Non-Ihxfxptt87/20/2024 11:44 AM [facility] PATHOLOGY LABORATORYComment:No laboratory evidence for HIV Infection. Negative result does not rule out acute HIV infection. Ifacute HIV infection is suspected, recommend ordering an HIV-1 RNA quanitification test.Specimen (Source)Anatomical Location / Laterality Collection Method / VolumeCollection TimeReceived TimeBloodBLOOD SPECIMEN / UnknownVenipuncture / Gmrmqug3404/12/2024 8:48 AM EDT04/12/2024 9:11 AM EDT Narrative [facility] - 04/12/2024 11:44 AM EDT HIV Information: ??[place] Rev. code 3701.243(E): This information has been [...] [place] HIV/HEP/SYPH TESTINGFinal ResultPerforming OrganizationAddressCity/State/ZIP CodePhone Number [facility] [address] [place] [address] from Last 3 Months or Most Recently Relevant to Health Maintenance Insurance Advance Directives * Full Code (Latest Code Status on File) Date ActivatedDate XbjcgwlryrrNdswkzma27/20/2024 7:12 PM10 6:16 PM QuestionAnswerCommentsDocumentation of decision [...]
[2025-08-25 10:54] VITALS: BP 185/118; PULSE 91; TEMP 36.2; O2SAT 92
[2025-08-25 12:37] VITALS: BP 145/84; BP 148/86; PULSE 90; PULSE 92; O2SAT 93; O2SAT 95
[2025-08-25] MEDS: LIDOCAINE 2% JELLY 10 ML UR (12:42)
--- NOTE | 2025-08-25 12:51 | PM.URSON ---
Urology Surgery Operative Note Operative Note Procedure Date: 08/25/25 Time Out Performed: yes Pre-op Diagnosis: History of bladder cancer Post-op Diagnosis: same as pre-op Procedures performed: 1. Cystoscopy. 2. Bladder wash for cytology Anesthesia: local Primary Surgeon: Jono Blake Complications: None Estimated blood loss (mL): 0 Findings: 1. Clumps of inflammatory debris on the floor. 2. Flat inflammatory red areas under the clumps and on the back wall. 3. No evidence of bladder tumors. Specimens: Bladder wash for cytology. Drains: None Indications for Procedures: This lady has a history of TCC of the bladder. She recently had a CT scan which suggested possible mass in the bladder. She now presents for cystoscopy. She has signed an informed consent after risks were explained. Detailed description of Procedure: The patient was kept on the gurney bed and brought into the endoscopy suite. She was in the supine position. Her legs were frog-legged and her perineum and genitalia was sterilely prepped and draped in the usual fashion. 2% lidocaine gel was passed per urethra. Timeout was done by all parties in the room. I started by passing a flexible cystoscope per urethra and into the bladder. Careful panendoscopy in the bladder revealed no evidence of any papillary tumors. There were no bladder masses. She had some clumps of inflammatory debris on the base of the bladder. Under these clumps or red mucosa. The mucosa did not appear as carcinoma in situ but it did appear as inflammatory in nature. There was also some flat red areas on the back wall. None of these looked suspicious. Retroflex revealed no evidence of tumors or any new findings. A vigorous bladder wash was taken and sent for cytology. The scope was then removed. She was then discharged back to her facility.
== END 2025-08-25 12:54 | disposition home or self-care (01) ==
PROVIDERS: Visit Provider Urology
PROC: (CPT 52000; principal; 2025-08-25 11:20)
DX: Z85.51 Personal history of malignant neoplasm of bladder (principal); J45.909 Unspecified asthma, uncomplicated; I25.10 Atherosclerotic heart disease of native coronary artery without angina pectoris; K21.9 Gastro-esophageal reflux disease without esophagitis; J44.9 Chronic obstructive pulmonary disease, unspecified; I10 Essential (primary) hypertension; E78.5 Hyperlipidemia, unspecified; E03.9 Hypothyroidism, unspecified; G47.30 Sleep apnea, unspecified; H91.90 Unspecified hearing loss, unspecified ear; Z87.891 Personal history of nicotine dependence; E11.51 Type 2 diabetes mellitus with diabetic peripheral angiopathy without gangrene
CPT/HCPCS: 52000